=== PATIENT | female | born 1960 | race Two or more races ===

== ENCOUNTER 2016-08-29 22:35 | Emergency (ER) | payer SELFPAY ==
[2016-08-30] MEDS ORDERED: ONDANSETRON 4 MG TAB.RAPDIS PO ONE (00:53)
[2016-08-30] MEDS ORDERED: NORMAL SALINE 1000 ML 1,000 ML IV ONE ×2 (00:53→03:52)
--- NOTE | 2016-08-30 00:55 | ER Document Report ---
ED Medical Screen (RME) - General Stated Complaint: FEVER, VOMITING Time seen by provider: 00:50 Notes: 56 year old, 1 week of cough, fever, vomiting, body aches. States she couldn't eat anything today without vomiting. Productive cough. PMH HTN, denies any other PMH. - Related Data Allergies/Adverse Reactions: No Known Allergies Allergy (Verified 08/30/16 00:52) Past Medical History - Immunizations Hx Diphtheria, Pertussis, Tetanus Vaccination: Yes - tdap given tonight Physical Exam - Vital signs Vitals: Temp Pulse Resp BP Pulse Ox 98.6 F 82 16 116/73 97 08/30/16 00:00 08/30/16 00:00 08/30/16 00:00 08/30/16 00:00 08/30/16 00:00 - General General appearance: Other - patient appears tired but not in distress - Respiratory Breath sounds: Normal. No: Decreased air movement, Rhonchi Course - Vital Signs Vital signs: Temp Pulse Resp BP Pulse Ox 98.6 F 82 16 116/73 97 08/30/16 00:00 08/30/16 00:00 08/30/16 00:00 08/30/16 00:00 08/30/16 00:00
[2016-08-30 03:29] LABS: ABSOLUTE BASOPHILS # (AUTO) 0.1 10^3/uL (0.0-0.2); ABSOLUTE LYMPHOCYTES (AUTO) 2.5 10^3/uL (0.5-4.7); ABSOLUTE MONOCYTES (AUTO) 0.7 10^3/uL (0.1-1.4); BASOPHILS % (AUTO) 0.7 % (0-2); EOSINOPHILS % (AUTO) 0.5 % (0-6); HEMATOCRIT 39.7 % (36.0-47.0); HEMOGLOBIN 13.1 g/dL (12.0-15.5); HGB HCT DIFFERENCE -0.4; LYMPHOCYTES % (AUTO) 33.9 % (13-45); MEAN CORPUSCULAR HEMOGLOBIN 28.5 pg (27.0-33.4); MEAN CORPUSCULAR VOLUME 86 fl (80-97); MONOCYTES % (AUTO) 10.1 % (3-13); RED CELL DISTRIBUTION WIDTH 14.3 % (11.5-14.0); SEGMENTED NEUTROPHILS % (AUTO) 54.8 % (42-78); WHITE BLOOD COUNT 7.4 10^3/uL (4.0-10.5)
[2016-08-30 03:33] LABS: APPEARANCE,URINE SLIGHTLY-CLOUDY; BILIRUBIN,URINE NEGATIVE (NEGATIVE); GLUCOSE, URINE NEGATIVE (NEGATIVE); KETONES,URINE NEGATIVE (NEGATIVE); LEUKOCYTE ESTERASE,URINE LARGE (NEGATIVE); NITRITE,URINE POSITIVE (NEGATIVE); PROTEIN,URINE NEGATIVE (NEGATIVE); URINE SPECIFIC GRAVITY 1.015
[2016-08-30 03:44] LABS: ALANINE AMINOTRANSFERASE 37 U/L (9-52); ALBUMIN 4.2 g/dL (3.5-5.0); ALKALINE PHOSPHATASE 122 U/L (38-126); ANION GAP 13 (5-19); ASPARTATE AMINO TRANSFERASE 31 U/L (14-36); BILIRUBIN,TOTAL 0.7 mg/dL (0.2-1.3); BLOOD UREA NITROGEN 13 mg/dL (7-20); CALCIUM 9.4 mg/dL (8.4-10.2); CARBON DIOXIDE 27 mmol/L (22-30); CHLORIDE 102 mmol/L (98-107); GLUCOSE 117 mg/dL (75-110); POTASSIUM 4.4 mmol/L (3.6-5.0); SODIUM 141.8 mmol/L (137-145); TOTAL PROTEIN 7.1 g/dL (6.3-8.2)
[2016-08-30] MEDS ORDERED: CEFTRIAXONE 1 GM/D5W RTU 50 ML IV ONE (03:52)
[2016-08-30] MEDS ORDERED: KETOROLAC TROMETHAMINE INJ/PF 30 MG/1 ML SDV IV ONE (03:52)
--- NOTE | 2016-08-30 03:52 | ER Document Report ---
ED GI/ - General Mode of Arrival: Ambulatory Information source: Patient, Relative TRAVEL OUTSIDE OF THE [place] IN LAST 30 DAYS: No - HPI Patient complains to provider of: Flank pain - left Onset: Last week Location: Left flank Associated symptoms: Other - see above <AISHWARYA JARA - Last Filed: 08/30/16 04:01> <CLAUDIONADINE ANN - Last Filed: 08/30/16 05:19> - General Chief Complaint: Nausea/Vomiting Stated Complaint: FEVER, VOMITING Notes: 56 year old female presents to the ED complaining of vomiting, fever, and left flank pain that started last week. Patient is additionally complaining of a bloody nose and dysuria. Patient receives primary care at [facility] and is scheduled for an appointment in 4 days. (AISHWARYA JARA) - Related Data Allergies/Adverse Reactions: No Known Allergies Allergy (Verified 08/30/16 00:52) Past Medical History - General Information source: Patient - Social History Smoking Status: Former Smoker Chew tobacco use (# tins/day): No Frequency of alcohol use: None Drug Abuse: None Family History: Reviewed & Not Pertinent Patient has suicidal ideation: No Patient has homicidal ideation: No - Past Medical History Cardiac Medical History: Reports: Hx Hypertension - Immunizations Hx Diphtheria, Pertussis, Tetanus Vaccination: Yes - tdap given tonight <AISHWARYA JARA - Last Filed: 08/30/16 04:01> Review of Systems - Review of Systems Constitutional: See HPI, Fever EENT: See HPI, Nose discharge - bloody nose Cardiovascular: No symptoms reported Respiratory: No symptoms reported Gastrointestinal: See HPI, Vomiting Genitourinary: See HPI, Dysuria, Flank pain - left Female Genitourinary: No symptoms reported Musculoskeletal: No symptoms reported Skin: No symptoms reported Hematologic/Lymphatic: No symptoms reported Neurological/Psychological: No symptoms reported -: Yes All other systems reviewed and negative <AISHWARYA JARA - Last Filed: 08/30/16 04:01> Physical Exam - Vital signs Interpretation: Normal - General General appearance: Alert In distress: None - HEENT Head: Normocephalic, Atraumatic Eyes: Normal Extraocular movements intact: Yes Pupils: PERRL - Respiratory Respiratory status: No respiratory distress Breath sounds: Normal - Cardiovascular Rhythm: Regular Heart sounds: Normal auscultation - Abdominal Inspection: Normal - Back Back: CVA tenderness - left. No: Normal - Extremities General upper extremity: Normal inspection, Normal ROM General lower extremity: Normal inspection, Normal ROM - Neurological Neuro grossly intact: Yes Cognition: Normal Orientation: AAOx4 Rene Coma Scale Eye Opening: Spontaneous [place] Coma Scale Verbal: Oriented [place] Coma Scale Motor: Obeys Commands Rene Coma Scale Total: 15 Speech: Normal - Psychological Associated symptoms: Normal affect, Normal mood - Skin Skin Temperature: Warm Skin Moisture: Dry Skin Color: Normal <AISHWARYA JARA - Last Filed: 08/30/16 04:01> <NADINE SNYDER - Last Filed: 08/30/16 05:19> - Vital signs Vitals: Temp Pulse Resp BP Pulse Ox 98.6 F 82 16 116/73 97 08/30/16 00:00 08/30/16 00:00 08/30/16 00:00 08/30/16 00:00 08/30/16 00:00 (AISHWARYA JARA) (NADINE SNYDER) Course - Laboratory Result Diagrams: 08/30/16 03:00 08/30/16 03:00 <AISHWARYA JARA - Last Filed: 08/30/16 04:01> - Laboratory Result Diagrams: 08/30/16 03:00 08/30/16 03:00 <NADINE SNYDER - Last Filed: 08/30/16 05:19> - Vital Signs Vital signs: Temp Pulse Resp BP Pulse Ox 98.7 F 81 20 107/47 L 96 08/30/16 04:24 08/30/16 04:24 08/30/16 04:24 08/30/16 04:24 08/30/16 04:24 (AISHWARYA JARA) (NADINE SNYDER) - Laboratory Laboratory results interpreted by ma: 08/30/16 08/30/16 08/30/16 03:00 03:00 03:00 RDW 14.3 H Plt Count 130 L Glucose 117 H Urine Nitrite POSITIVE H Urine Urobilinogen 2.0 H Ur Leukocyte Esterase LARGE H Urine Ascorbic Acid 40 H (AISHWARYA JARA) (NADINE SNYDER) Discharge <AISHWARYA JARA - Last Filed: 08/30/16 04:01> <NADINE SNYDER - Last Filed: 08/30/16 05:19> - Discharge Clinical Impression: Pyelonephritis Condition: Stable Disposition: HOME, SELF-CARE Instructions: Pyelonephritis ([facility]) Prescriptions: Cefdinir 300 mg PO BID #20 capsule Ondansetron [Zofran Odt 4 mg Tablet] 1 - 2 tab PO Q4H PRN #15 tab.rapdis PRN Reason: For Nausea/Vomiting Oxycodone HCl/Acetaminophen [Percocet 5-325 mg Tablet] 1 - 2 tab PO Q4H PRN #15 tablet PRN Reason: Referrals: LAURA GAY MD [Primary Care Provider] - Follow up as needed Scribe Attestation: 08/30/16 05:19 I personally performed the services described in the documentation, reviewed and edited the documentation which was dictated to the scribe in my presence, and it accurately records my words and actions. (NADINE SNYDER)
[2016-08-30] MEDS ORDERED: ONDANSETRON ODT 4 MG TAB (6 TAB/DSPK) PO PRN (05:15)
[2016-08-30] MEDS ORDERED: HYDROCODONE/ACETAMINOPHEN 5-325 MG 6 TAB/DSPK PO PRN (05:15)
[2016-08-30 05:51] VITALS: BP 119/68
== END 2016-08-30 05:51 | disposition home or self-care (01) ==
LOC: ER 22:35
DX: N12 Tubulo-interstitial nephritis, not specified as acute or chronic (principal); R11.2 Nausea with vomiting, unspecified; R50.9 Fever, unspecified; R10.9 Unspecified abdominal pain; R04.0 Epistaxis; R30.0 Dysuria; Z87.891 Personal history of nicotine dependence
CPT/HCPCS: 36415; 87040; 87086; 85025; 87088; 80053; 81001; 87186; 87804; S0119; J1885; J7030; J0696

== ENCOUNTER → 2017-06-16 | Outpatient (CLI) | payer BC ==
--- NOTE | 2017-06-16 14:58 | RADIOLOGY REPORT (SQ) ---
EXAM DESCRIPTION: CHEST PA/LAT COMPLETED DATE/TIME: 06/16/2017 1:21 pm REASON FOR STUDY: ATYPICAL CHEST PAIN (R07.89) COMPARISON: None. EXAM PARAMETERS: NUMBER OF VIEWS: two views TECHNIQUE: Digital Frontal and Lateral radiographic views of the chest acquired. RADIATION DOSE: NA LIMITATIONS: none FINDINGS: LUNGS AND PLEURA: No opacities, masses or pneumothorax. No pleural effusion. MEDIASTINUM AND HILAR STRUCTURES: No masses or contour abnormalities. HEART AND VASCULAR STRUCTURES: Heart normal size. No evidence for failure. BONES: No acute findings. HARDWARE: None in the chest. OTHER: No other significant finding. IMPRESSION: NO SIGNIFICANT RADIOGRAPHIC FINDING IN THE CHEST. TECHNICAL DOCUMENTATION: JOB ID: [id number] [employer]- All Rights Reserved
== END ==
LOC: RAD 12:59
PROVIDERS: ATTEND Family Medicine
DX: R07.89 Other chest pain (principal)
CPT/HCPCS: 71020

== ENCOUNTER 2017-12-29 16:11 | Emergency (ER) | payer BC ==
[2017-12-29] MEDS ORDERED: ONDANSETRON HCL INJ/PF 4 MG/2 ML SDV IV ONE (17:06)
[2017-12-29] MEDS ORDERED: FENTANYL CITRATE INJ/PF 100 MCG/2 ML AMPUL IV ONE (17:06)
--- NOTE | 2017-12-29 17:08 | ER Document Report ---
ED Medical Screen (RME) - General Chief Complaint: Nausea/Vomiting Stated Complaint: VOMITING Time Seen by Provider: 12/29/17 17:02 Notes: RAPID MEDICAL EVALUATION DISCLOSURE I have seen this patient as part of a Rapid Medical Evaluation and, if applicable, placed any initially appropriate orders. The patient will be seen and fully evaluated, including a full history and physical exam, by a provider ( in Main ED or Fast Track) when a room becomes available. 57-year-old female here with complaints of nausea vomiting abdominal pain ongoing since last night. The symptoms started after she ate some fish that the caught. The abdominal pain is described as "all over". She had some fevers yesterday but not today. She has no diarrhea. EXAM CTAB RRR Minimally tender abdomen No peritoneal signs TRAVEL OUTSIDE OF THE [place] IN LAST 30 DAYS: No - Related Data Allergies/Adverse Reactions: No Known Allergies Allergy (Verified 08/30/16 00:52) Past Medical History - Social History Chew tobacco use (# tins/day): No Frequency of alcohol use: None Drug Abuse: None - Past Medical History Cardiac Medical History: Reports: Hx Hypertension Renal/ Medical History: Denies: Hx Peritoneal Dialysis - Immunizations Hx Diphtheria, Pertussis, Tetanus Vaccination: Yes - tdap given tonight Physical Exam - Vital signs Vitals: Temp Pulse Resp Pulse Ox 97.6 F 90 18 100 12/29/17 16:22 12/29/17 16:22 12/29/17 16:22 12/29/17 16:22 Course - Vital Signs Vital signs: Temp Pulse Resp BP Pulse Ox 97.6 F 90 18 100 12/29/17 16:22 12/29/17 16:22 12/29/17 16:22 12/29/17 16:22
[2017-12-29 18:08] LABS: HEMATOCRIT 49.7 % (36.0-47.0); HEMOGLOBIN 15.9 g/dL (12.0-15.5); MEAN CORPUSCULAR VOLUME 81 fl (80-97); PLATELET COUNT 212 10^3/uL (150-450); RED BLOOD COUNT 6.11 10^6/uL (3.72-5.28); RED CELL DISTRIBUTION WIDTH 17.4 % (11.5-14.0); WHITE BLOOD COUNT 20.1 10^3/uL (4.0-10.5)
--- NOTE | 2017-12-29 18:18 | RADIOLOGY REPORT (SQ) ---
EXAM DESCRIPTION: ACUTE ABDOMEN SERIES COMPLETED DATE/TIME: 12/29/2017 6:05 pm REASON FOR STUDY: n/v abd pain COMPARISON: None. NUMBER OF VIEWS: Three views. TECHNIQUE: Frontal chest, supine abdomen and upright abdomen radiographic images acquired. LIMITATIONS: None. FINDINGS: CHEST: No acute infiltrates. No pleural effusion. No pneumothorax. No cardiomegaly. FREE AIR: None. No abnormal gas collections. BOWEL GAS PATTERN: Nonobstructive pattern. No dilated loops or air fluid levels. CALCIFICATIONS: No suspicious calcifications. HARDWARE: None in the abdomen. SOFT TISSUES: Splenomegaly, at least 15 cm in length BONES: No acute fracture. No worrisome bone lesions. OTHER: No other significant finding. IMPRESSION: Splenomegaly Nonobstructive bowel gas pattern No acute infiltrates TECHNICAL DOCUMENTATION: JOB ID: [id number] [employer]- All Rights Reserved Reading location - IP/workstation name: [email or web address]
[2017-12-29 18:22] LABS: ALANINE AMINOTRANSFERASE 28 U/L (9-52); ALBUMIN 4.4 g/dL (3.5-5.0); ALKALINE PHOSPHATASE 103 U/L (38-126); ANION GAP 15 (5-19); ASPARTATE AMINO TRANSFERASE 28 U/L (14-36); BILIRUBIN,DIRECT 0.4 mg/dL (0.0-0.4); BILIRUBIN,TOTAL 0.6 mg/dL (0.2-1.3); BLOOD UREA NITROGEN 24 mg/dL (7-20); CARBON DIOXIDE 27 mmol/L (22-30); CHLORIDE 103 mmol/L (98-107); GLUCOSE 159 mg/dL (75-110); LIPASE 143.1 U/L (23-300); POTASSIUM 4.7 mmol/L (3.6-5.0); SODIUM 144.5 mmol/L (137-145); TOTAL PROTEIN 7.9 g/dL (6.3-8.2)
[2017-12-29 18:26] LABS: ABSOLUTE LYMPHOCYTES# (MANUAL) 7.4 10^3/uL (0.5-4.7); ABSOLUTE NEUTROPHILS# (MANUAL) 11.7 10^3/uL (1.7-8.2); BASOPHILS % (MANUAL) 0 % (0-2); EOSINOPHILS % (MANUAL) 0 % (0-6); LYMPHOCYTES % (MANUAL) 32 % (13-45); MONOCYTES % (MANUAL) 5 % (3-13); PLATELET COMMENT ADEQUATE; SEGMENTED NEUTROPHILS % (MAN) 58 % (42-78); TOTAL CELLS COUNTED 100
[2017-12-29 18:27] LABS: ANISOCYTOSIS SLIGHT; OVALOCYTES SLIGHT; POIKILOCYTOSIS SLIGHT
[2017-12-29 18:29] LABS: NUCLEATED RED BLOOD CELLS 0 /100 WBC (0)
[2017-12-29] MEDS ORDERED: NORMAL SALINE 1000 ML 1,000 ML IV ONE (21:10)
[2017-12-29] MEDS ORDERED: MORPHINE SULFATE 10 MG/ML INJ IV ONE (21:10)
--- NOTE | 2017-12-29 21:23 | ER Document Report ---
ED GI/ - General Chief Complaint: Nausea/Vomiting Stated Complaint: VOMITING Time Seen by Provider: 12/29/17 17:02 Mode of Arrival: Ambulatory Information source: Patient Notes: 57-year-old female presents with complaint of abdominal pain and vomiting since last night. Patient's daughter at bedside states that she has been vomiting nonstop all day. Patient states that she has vomited at least 15 times. Patient denies any diarrhea, fever, dysuria or any other symptoms. Patient with history of cholecystectomy. TRAVEL OUTSIDE OF THE [place] IN LAST 30 DAYS: No - Related Data Allergies/Adverse Reactions: No Known Allergies Allergy (Verified 08/30/16 00:52) Past Medical History - General Information source: Patient, Relative - Social History Smoking Status: Never Smoker Chew tobacco use (# tins/day): No Frequency of alcohol use: None Drug Abuse: None Family History: Reviewed & Not Pertinent Patient has suicidal ideation: No Patient has homicidal ideation: No - Past Medical History Cardiac Medical History: Reports: Hx Hypertension Renal/ Medical History: Denies: Hx Peritoneal Dialysis Past Surgical History: Reports: Hx Cholecystectomy - Immunizations Hx Diphtheria, Pertussis, Tetanus Vaccination: Yes - tdap given tonight Review of Systems - Review of Systems Constitutional: Diaphoresis EENT: No symptoms reported Cardiovascular: No symptoms reported Respiratory: No symptoms reported Gastrointestinal: Abdominal pain, Nausea, Vomiting Genitourinary: No symptoms reported Female Genitourinary: No symptoms reported Musculoskeletal: No symptoms reported Skin: No symptoms reported Hematologic/Lymphatic: No symptoms reported Neurological/Psychological: No symptoms reported Physical Exam - Vital signs Vitals: Temp Pulse Resp Pulse Ox 97.6 F 90 18 100 12/29/17 16:22 12/29/17 16:22 12/29/17 16:22 12/29/17 16:22 - Notes Notes: PHYSICAL EXAMINATION: GENERAL: Well-nourished female writhing around in moderate distress. HEAD: Atraumatic, normocephalic. EYES: Pupils equal round and reactive to light, extraocular movements intact, conjunctiva are normal. ENT: Nares patent, oropharynx clear without exudates. Moist mucous membranes. NECK: Normal range of motion, supple without lymphadenopathy LUNGS: Breath sounds clear to auscultation bilaterally and equal. No wheezes rales or rhonchi. HEART: Regular rate and rhythm without murmurs ABDOMEN: Significant tenderness to RLQ/RUQ/periumbilical/epigastric area of abdomen. + guarding, no rebound. No masses appreciated. Large scar noted from previous cholecystectomy. Female : No suprapubic pain with palpation. Musculoskeletal: Normal range of motion, no pitting or edema. No cyanosis. NEUROLOGICAL: Cranial nerves grossly intact. Normal speech. Normal sensory, motor exams PSYCH: Normal mood, normal affect. SKIN: Warm, Dry, normal turgor, no rashes or lesions noted. Course - Re-evaluation Re-evalutation: 57-year-old Algerian-speaking female presenting with vomiting since 12 noon as well as abdominal pain. Patient is afebrile. Patient is very tender with palpation on exam to periumbilical and right lower quadrant. Patient has not vomited since she was medicated with Zofran. Initial CBC shows elevated white blood count at 20,000. Chemistries unremarkable. Triage provider ordered an acute abdominal series which does not show any acute findings. Patient will be given 2 L fluid bolus as well as pain and nausea medication. Given patient's exquisite abdominal tenderness, will order CT abdomen and pelvis with IV and oral contrast. Patients CT abdomen pelvis shows wall thickening involving loops of the distal ileum possibly infectious. Patient still has not vomited since her initial dose of Zofran. Patient does report that pain is improved. Patient is willing to try a p.o. challenge and try to take p.o. antibiotics. Patient tolerated p.o. fluids as well as p.o. antibiotics and has not vomited 1 hour after administration. Discussed at length return precautions to include increasing pain or development of fever. Patient and spouse at bedside both verbalized understanding of discharge procedures as well as return precautions. Patient does report that she does feel well enough to go home. - Vital Signs Vital signs: Temp Pulse Resp BP Pulse Ox 98.5 F 90 23 H 129/63 H 95 12/30/17 04:33 12/29/17 16:22 12/30/17 04:01 12/30/17 04:01 12/30/17 04:01 - Laboratory Result Diagrams: 12/29/17 17:35 12/29/17 17:35 Laboratory results interpreted by me: 12/29/17 12/29/17 17:35 17:35 WBC 20.1 H RBC 6.11 H Hgb 15.9 H Hct 49.7 H MCH 26.0 L RDW 17.4 H Abs Neuts (Manual) 11.7 H Abs Lymphs (Manual) 7.4 H BUN 24 H Glucose 159 H Discharge - Discharge Clinical Impression: Bowel wall thickening Abdominal pain Qualifiers: Abdominal location: right lower quadrant Qualified Code(s): R10.31 - Right lower quadrant pain Vomiting Qualifiers: Vomiting type: unspecified Vomiting Intractability: unspecified Nausea presence : with nausea Qualified Code(s): R11.2 - Nausea with vomiting, unspecified Condition: Stable Disposition: HOME, SELF-CARE Additional Instructions: [place] nicamente lquidos transparentes ivan los prximos dos augustin, luego avance la dieta segn lo tolere. [place] los medicamentos segn lo recetado. [place] Tylenol para el dolor. Jase un seguimiento con [facility] esta semana para un seguimiento. Adjunto eliseo copia de naresh estudios de radiologa. Regrese al servicio de urgencias si ackerman dolor empeora o si tiene fiebre. Prescriptions: Ciprofloxacin HCl [Cipro 500 mg Tablet] 500 mg PO BID #20 tablet Metronidazole [Flagyl 500 mg Tablet] 500 mg PO TID #21 tablet Ondansetron [Zofran Odt 4 mg Tablet] 1 - 2 tab PO Q4H PRN #15 tab.rapdis PRN Reason: For Nausea/Vomiting
--- NOTE | 2017-12-30 00:45 | RADIOLOGY REPORT (SQ) ---
EXAM DESCRIPTION: CT ABDOMEN AND PELVIS WITH CONTRAST CLINICAL HISTORY: right abd pain/vomiting COMPARISON: None Available. TECHNIQUE: CT of the abdomen and pelvis performed following IV administration of 81 mL of Isovue-370. Delayed imaging obtained. DLP: 1296.26 mGycm FINDINGS: Lung Bases: The visualized lung bases are clear. Bones: No destructive bone lesions identified. Minimal degenerative spondylosis of the visualized spine. Abdomen: Liver: The liver has normal size and density. No intrahepatic mass or biliary dilatation. Gallbladder: Prior cholecystectomy. Spleen, Pancreas, and Adrenal Glands: Splenomegaly. The adrenal glands and pancreas are unremarkable. Kidneys: The kidneys have normal size and contour without evidence of solid mass or hydronephrosis. Vasculature: Aortoiliac atherosclerosis. IVC is unremarkable. The portal vein is patent. The proximal visceral and renal arteries are patent. Stomach: The stomach and duodenum have normal course. Other: No free intraperitoneal air. Small amount of ascites. Pelvis: Bladder: Urinary bladder is unremarkable. Bowel: Extensive wall thickening involving a loop of distal ileum. Wall thickening measures 1.0 cm. Catheter diverticula of the colon. No dilated loops of large or small bowel. Appendix: Normal appendix. Pelvis: Uterus is not enlarged. IMPRESSION: 1. Wall thickening involving loops of distal ileum. This is nonspecific and may be related to enteritis of infectious or inflammatory etiology. Neoplastic or ischemic etiologies not excluded. 2. Small amount of ascites. 3. Diverticulosis without evidence of acute diverticulitis. 4. Splenomegaly. This exam was performed according to our departmental dose-optimization program, which includes automated exposure control, adjustment of the mA and/or kV according to patient size and/or use of iterative reconstruction technique.
[2017-12-30] MEDS ORDERED: METRONIDAZOLE 500 MG TABLET PO ONE (02:00)
[2017-12-30] MEDS ORDERED: MORPHINE SULFATE IR 15 MG TABLET PO ONE (02:00)
[2017-12-30] MEDS ORDERED: CIPROFLOXACIN HCL 500 MG TABLET PO ONE (02:00)
[2017-12-30] MEDS ORDERED: ONDANSETRON 4 MG TAB.RAPDIS PO ONE (03:51)
[2017-12-30 05:04] VITALS: BP 114/62
== END 2017-12-30 04:45 | disposition home or self-care (01) ==
LOC: ER 16:11
DX: R11.2 Nausea with vomiting, unspecified (principal); R10.31 Right lower quadrant pain; R19.8 Other specified symptoms and signs involving the digestive system and abdomen; R61 Generalized hyperhidrosis; R10.813 Right lower quadrant abdominal tenderness; R10.815 Periumbilic abdominal tenderness; R10.811 Right upper quadrant abdominal tenderness; R10.816 Epigastric abdominal tenderness; D72.829 Elevated white blood cell count, unspecified; I10 Essential (primary) hypertension; Z90.49 Acquired absence of other specified parts of digestive tract
CPT/HCPCS: 99284; 96361; 96374; 96375; 36415; 83690; 85025; 80053; 74022; 74177; S0119; J3010; J2270; J2405; J7030

== ENCOUNTER 2018-06-09 12:13 | Day surgery (SDC) | payer BC ==
[~2018-06-09 12:13] MED LIST: EPINEPHRINE INJ 1 MG/10 ML DISP.SYRIN ONE; FLUMAZENIL INJ 0.5 MG/5 ML VIAL ONE; GLUCAGON,HUMAN RECOMB 1 MG INJ ONE; NALOXONE HCL INJ/PF 0.4 MG/1 ML SDV ONE; ONDANSETRON HCL INJ/PF 4 MG/2 ML SDV ONE
[2018-06-09] MEDS: MIDAZOLAM 2 MG/2 ML INJ ONE ×2 (12:56→13:00)
[2018-06-09] MEDS: FENTANYL CITRATE INJ/PF 100 MCG/2 ML AMPUL ONE ×3 (12:58→13:04)
--- NOTE | 2018-06-09 13:18 | Operative Report ---
Operative Report DATE OF SURGERY: 06/09/18 Operative Report: The risks benefits and alternatives of the procedure explained to the patient in detail and informed consent is obtained.A GIF Olympus video scope was inserted into the patient's mouth and hypopharynx the esophagus is identified intubated and insufflated, the scope was then advanced through the esophagus stomach and duodenum ,retroflexion maneuver is done, the esophagus stomach and first and second portions of the duodenum examined PREOPERATIVE DIAGNOSIS: Hematemesis POSTOPERATIVE DIAGNOSIS: Gastric ulcer/erosion. Gastritis. No active bleeding seen. Biopsy obtained to rule out for Helicobacter pylori OPERATION: EGD with biopsy SURGEON: YEN JACKSON ANESTHESIA: Moderate Sedation - 4 mg of Versed, 75 mcg of fentanyl. Conscious sedation monitoring time 30 minutes. TISSUE REMOVED OR ALTERED: As noted above. COMPLICATIONS: None. ESTIMATED BLOOD LOSS: None. INTRAOPERATIVE FINDINGS: As noted above. PROCEDURE: Patient tolerated the procedure well. No immediate postprocedure complications are noted. Patient discharged in good condition. Discharge date 06/09/2018. Discharge diet: Regular. Discharge activity: Regular. 2-3-week follow-up to discuss findings. Patient is instructed call the office or proceed to the emergency room should there be any further problems or questions. Wait on the biopsy.
[2018-06-09 14:33] VITALS: BP 106/70
== END 2018-06-09 14:10 | disposition home or self-care (01) ==
LOC: END 12:13
PROVIDERS: ATTEND Internal Medicine Gastroenterology
DX: K29.50 Unspecified chronic gastritis without bleeding (principal); K25.9 Gastric ulcer, unspecified as acute or chronic, without hemorrhage or perforation; K92.0 Hematemesis; Z79.899 Other long term (current) drug therapy; Z79.82 Long term (current) use of aspirin; Z79.51 Long term (current) use of inhaled steroids
CPT/HCPCS: 43239; 88305 ×2; J2250; J3010; J2405; J0171; J1610; J2310; J3490

== ENCOUNTER → 2018-07-27 | Outpatient (CLI) | payer BC ==
[2018-07-27 11:18] LABS: HEMATOCRIT 37.5 % (36.0-47.0); HEMOGLOBIN 12.3 g/dL (12.0-15.5); MEAN CORPUSCULAR HEMOGLOBIN 26.3 pg (27.0-33.4); MEAN CORPUSCULAR HGB CONC 32.7 g/dL (32.0-36.0); MEAN CORPUSCULAR VOLUME 80 fl (80-97); PLATELET COUNT 145 10^3/uL (150-450); RED BLOOD COUNT 4.66 10^6/uL (3.72-5.28); RED CELL DISTRIBUTION WIDTH 17.9 % (11.5-14.0); WHITE BLOOD COUNT 4.9 10^3/uL (4.0-10.5)
[2018-07-27 11:27] LABS: ALANINE AMINOTRANSFERASE 20 U/L (9-52); ALBUMIN 4.4 g/dL (3.5-5.0); ALKALINE PHOSPHATASE 107 U/L (38-126); ANION GAP 13 (5-19); ASPARTATE AMINO TRANSFERASE 27 U/L (14-36); BILIRUBIN,DIRECT 0.2 mg/dL (0.0-0.4); BILIRUBIN,TOTAL 0.6 mg/dL (0.2-1.3); BLOOD UREA NITROGEN 20 mg/dL (7-20); CALCIUM 9.9 mg/dL (8.4-10.2); CARBON DIOXIDE 28 mmol/L (22-30); CHLORIDE 102 mmol/L (98-107); CHOLESTEROL 165.38 mg/dL (0-200); GLUCOSE 96 mg/dL (75-110); POTASSIUM 4.9 mmol/L (3.6-5.0); SODIUM 143.1 mmol/L (137-145); TOTAL PROTEIN 7.4 g/dL (6.3-8.2); TRIGLYCERIDES 72 mg/dL (<150)
--- NOTE | 2018-07-27 11:29 | RADIOLOGY REPORT (SQ) ---
EXAM DESCRIPTION: CHEST PA/LATERAL COMPLETED DATE/TIME: 07/27/2018 10:25 am REASON FOR STUDY: DEMENTIA;SOB COMPARISON: Chest films 12/29/2017, 06/16/2017 EXAM PARAMETERS: NUMBER OF VIEWS: two views TECHNIQUE: Digital Frontal and Lateral radiographic views of the chest acquired. RADIATION DOSE: NA LIMITATIONS: none FINDINGS: LUNGS AND PLEURA: No opacities, masses or pneumothorax. No pleural effusion. MEDIASTINUM AND HILAR STRUCTURES: No masses or contour abnormalities. HEART AND VASCULAR STRUCTURES: Heart normal size. No evidence for failure. BONES: No acute findings. HARDWARE: None in the chest. OTHER: No other significant finding. IMPRESSION: NO SIGNIFICANT RADIOGRAPHIC FINDING IN THE CHEST. TECHNICAL DOCUMENTATION: JOB ID: [id number] [employer]- All Rights Reserved Reading location - IP/workstation name: [email or web address]
[2018-07-27 11:38] LABS: DIRECT LDL 98 mg/dL (<100)
[2018-07-27 12:41] LABS: ABSOLUTE LYMPHOCYTES# (MANUAL) 2.9 10^3/uL (0.5-4.7); ABSOLUTE MONOCYTES # (MANUAL) 0.5 10^3/uL (0.1-1.4); ABSOLUTE NEUTROPHILS# (MANUAL) 1.4 10^3/uL (1.7-8.2); BASOPHILS % (MANUAL) 0 % (0-2); EOSINOPHILS % (MANUAL) 1 % (0-6); LYMPHOCYTES % (MANUAL) 59 % (13-45); MONOCYTES % (MANUAL) 11 % (3-13); SEGMENTED NEUTROPHILS % (MAN) 29 % (42-78); TOTAL CELLS COUNTED 100
[2018-07-27 12:43] LABS: ANISOCYTOSIS 1+; HYPOCHROMASIA SLIGHT; OVALOCYTES 1+; PLATELET COMMENT DECREASED; POIKILOCYTOSIS 1+
== END ==
LOC: OD 09:40
PROVIDERS: ATTEND Internal Medicine
DX: D64.9 Anemia, unspecified (principal); R10.9 Unspecified abdominal pain; E03.9 Hypothyroidism, unspecified; E55.9 Vitamin D deficiency, unspecified
CPT/HCPCS: 36415; 71046; 80053; 80061; 82140; 82306; 82607; 82746; 84443; 85025

== ENCOUNTER → 2018-07-29 | Outpatient (CLI) | payer BC ==
--- NOTE | 2018-07-29 09:19 | RADIOLOGY REPORT (SQ) ---
EXAM DESCRIPTION: CT HEAD WITHOUT COMPLETED DATE/TIME: 07/29/2018 9:03 am REASON FOR STUDY: UNSPECIFIED DEMENTIA WITHOUT BEHAVORIAL DISTRUBANCE F03.90 UNSPECIFIED DEMENTIA W ITHOUT BEHAVIORAL DISTURBANCE R55 SYNCOPE AND COLLAPSE COMPARISON: None. TECHNIQUE: Axial images acquired through the brain without intravenous contrast. Images reviewed wi th bone, brain and subdural windows. Additional sagittal and coronal reconstructions were generated. Images stored on PACS. All CT scanners at this facility use dose modulation, iterative reconstruction, and/or weight based d osing when appropriate to reduce radiation dose to as low as reasonably achievable (ALARA). [facility]: Dose Right [facility]: CareDose [facility]: Dose Right [facility]: Teradose 4D [facility]: Smart [employer] RADIATION DOSE: CT Rad equipment meets quality standard of care and radiation dose reduction techniq ues were employed. CTDIvol: 47.9 - 48.6 mGy. DLP: 1486 mGy-cm. mGy. LIMITATIONS: None. FINDINGS: VENTRICLES: Normal size and contour. CEREBRUM: There is a small focal area of relative increased density at the level of the sylvian fissu re on the left which could conceivably represent a small mass. This could also represent a faint brenda cification. If further workup is deemed clinically warranted, MRI may be of value for further evalua tion. No hemorrhage. No midline shift. No evidence for acute infarction. Normal irizarry/white matter differentiation. No areas of low density in the white matter. There is a focal calcific density in t he right frontal lobe without associated mass. CEREBELLUM: There is a faint radiopaque density at the level of the sylvian fissure on the left. No hemorrhage. No alteration of density. No evidence for acute infarction. EXTRAAXIAL SPACES: No fluid collections. No masses. ORBITS AND GLOBE: No intra- or extraconal masses. Normal contour of globe without masses. CALVARIUM: No fracture. PARANASAL SINUSES: No fluid or mucosal thickening. SOFT TISSUES: No mass or hematoma. OTHER: No other significant finding. IMPRESSION: Small focal area of relative increased density at the level of the sylvian fissure on th e left as noted above this could conceivably represent a small mass but could also represent a faint calcification. Clinical correlation is recommended. If further workup is deemed clinically warrante d I would recommend MRI. Calcific density is identified at the level of the right frontal lobe witho ut associated mass. Other findings as noted above EVIDENCE OF ACUTE STROKE: NO. COMMENT: Quality ID # [id number]: Final reports with documentation of one or more dose reduction techniques (e.g., Automated exposure control, adjustment of the mA and/or kV according to patient size, use of iterative reconstruction technique) TECHNICAL DOCUMENTATION: JOB ID: [id number] [employer]- All Rights Reserved Reading location - IP/workstation name: [email or web address]
--- NOTE | 2018-07-29 12:19 | RADIOLOGY REPORT (SQ) ---
EXAM DESCRIPTION: CAROTID DOPPLER COMPLETED DATE/TIME: 07/29/2018 12:02 pm REASON FOR STUDY: SYNCOPE F03.90 UNSPECIFIED DEMENTIA WITHOUT BEHAVIORAL DISTURBANCE R55 SYNCOPE A ND COLLAPSE COMPARISON: CT brain 07/29/2018 TECHNIQUE: Grayscale ultrasound, Doppler velocity and spectra, and color Doppler images acquired of the extra-cranial carotid and vertebral arteries. Images stored on PACS. LIMITATIONS: None. FINDINGS: RIGHT CAROTID CCA Velocities: Within normal limits. Right common carotid artery peak systolic velocity 0.9 m/sec ICA Velocities Peak systolic 1.2 m/s. End diastolic 0.4 m/s. Proximal ICA/CCA peak systolic ratio 1.3. Velocities suggest about 50% diameter narrowing of the proximal right ICA. This correlates with irizarry scale and color flow imaging LEFT CAROTID CCA Velocities: Within normal limits. Left common carotid artery peak systolic velocity 0.89 m/sec ICA Velocities Peak systolic 1.1 m/s. End diastolic 0.4 m/s. Proximal ICA/CCA peak systolic ratio 1.3. Velocities suggest about 50% diameter narrowing of the left proximal ICA. This correlates with zafar moy and color flow images VERTEBRAL ARTERIES: Antegrade flow. Normal waveforms. SUBCLAVIAN ARTERIES: Not examined. OTHER: No other significant finding. IMPRESSION: About 50% diameter narrowing proximal right and proximal left ICA at the carotid bifurca tions. Antegrade pulsatile vertebral artery flow bilaterally COMMENT: Quality ID #[id number]: Velocity criteria are extrapolated from the diameter data as defined by t [place] Society of Radiologists in Ultrasound Consensus Conference. Radiology 2003: 229; 340-346. TECHNICAL DOCUMENTATION: JOB ID: [id number] [employer]- All Rights Reserved Reading location - IP/workstation name: [facility]
--- NOTE | 2018-07-31 19:33 | XCELERA REPORT ---
[address] [address] Transthoracic Echocardiogram Report Name: HAZEL BORGES Age: 58 yrs Gender: Female : 1960 Patient Status: Outpatient Patient Location: [facility] Study Date: 07/29/2018 10:01 AM Procedure: A two-dimensional transthoracic echocardiogram with color flow and Doppler was performed. The study was technically limited with all images being suboptimal in quality. Reason For Study: SYNCOPE History: SYNCOPE. Ordering Physician: JEANIE TILLMAN Performed By: Shannen Montgomery Interpretation Summary The left ventricle is normal in size. There is normal left ventricular wall thickness. LV EF is 65% Left ventricular systolic function is normal. Doppler measurements suggest impaired left ventricular relaxation, which is associated with grade I/IV or mild diastolic dysfunction The left ventricular wall motion is normal. There is no thrombus. There is no ventricular septal defect visualized. The right ventricle is grossly normal size. The right ventricle is not well visualized secondary to technical limitations The right atrium is normal. The left atrial size is normal. The interatrial septum is intact with no evidence for an atrial septal defect. There is no evidence of mitral valve prolapse. There is no mitral valve stenosis. There is no mitral regurgitation noted. There is no aortic valve stenosis There is no LVOT obstruction. No aortic regurgitation is present. There is no tricuspid stenosis. No tricuspid regurgitation. Unable to calculate RVSP due lack of TR jet. There is no pulmonic valvular stenosis. There is no pulmonic valvular regurgitation. The aortic root is normal size. There is no pericardial effusion. MMode/2D Measurements & Calculations RVDd: 2.4 cm LVIDd: 4.5 cm FS: 34.7 % Ao root diam: 2.9 cm IVSd: 0.74 cm LVIDs: 2.9 cm EDV(Teich): 91.5 ml Ao root area: 6.4 cm2 LVPWd: 0.94 cm ESV(Teich): 32.9 ml EF(Teich): 64.0 % Doppler Measurements & Calculations MV E max perez: MV dec slope: Ao V2 max: LV V1 max P.7 cm/sec 132.4 cm/sec 4.1 mmHg MV A max perez: 308.7 cm/sec2 Ao max PG: LV V1 max: 85.9 cm/sec MV dec time: 0.16 sec 7.0 mmHg 101.5 cm/sec MV E/A: 0.59 PA V2 max: 90.0 cm/sec PA max P.2 mmHg Left Ventricle The left ventricle is normal in size. There is normal left ventricular wall thickness. LV EF is 65%. Left ventricular systolic function is normal. Doppler measurements suggest impaired left ventricular relaxation, which is associated with grade I/IV or mild diastolic dysfunction. The left ventricular wall motion is normal. There is no thrombus. There is no ventricular septal defect visualized. Right Ventricle The right ventricle is not well visualized secondary to technical limitations. The right ventricle is grossly normal size. Atria The right atrium is normal. The left atrial size is normal. The interatrial septum is intact with no evidence for an atrial septal defect. Mitral Valve There is no evidence of mitral valve prolapse. There is no vegetation seen on the mitral valve. There is no mitral valve stenosis. There is no mitral regurgitation noted. Aortic Valve There is no aortic valvular vegetation. There is no aortic valve stenosis. There is no LVOT obstruction. No aortic regurgitation is present. Tricuspid Valve There is no tricuspid stenosis. No tricuspid regurgitation. Unable to calculate RVSP due lack of TR jet. Pulmonic Valve There is no pulmonic valvular stenosis. There is no pulmonic valvular regurgitation. Great Vessels The aortic root is normal size. Effusions There is no pericardial effusion. : JEANIE TILLMAN > Pamela Pineda
== END ==
LOC: RAD 08:29
PROVIDERS: ATTEND Internal Medicine
DX: F03.90 Unspecified dementia, unspecified severity, without behavioral disturbance, psychotic disturbance, mood disturbance, and anxiety (principal)
CPT/HCPCS: 70450; 93306; 93880

== ENCOUNTER → 2018-09-19 | Outpatient (CLI) | payer BC ==
--- NOTE | 2018-09-19 14:33 | RADIOLOGY REPORT (SQ) ---
EXAM DESCRIPTION: MRI ABDOMEN WITHOUT COMPLETED DATE/TIME: 09/19/2018 10:48 am REASON FOR STUDY: RIGHT UPPER QUADRANT PAIN, OTHER SPECIFIED DISEASES OF BILARY TRACT K83.8 OTHER S PECIFIED DISEASES OF BILIARY TRACT COMPARISON: None. TECHNIQUE: Noncontrast MRCP. Source and MIP images reviewed. LIMITATIONS: None. FINDINGS: GALLBLADDER: Surgically absent INTRAHEPATIC DUCTS: Nondilated. EXTRAHEPATIC DUCTS: Normal caliber common duct. There is an additional tubular structure entering th e common duct distally smooth blind in proximally. Probably residual cystic duct. PANCREAS: Generally homogeneous, no gross mass or significant signal alteration. No surrounding infl ammatory changes or fluid. Pancreatic duct is normal. LIVER, SPLEEN, KIDNEYS, ADRENALS: Massive splenomegaly. 22 cm. VESSELS: No evidence of aneurysm. Grossly appropriate flow voids in the major vascular structures. LUNG BASES: Grossly clear. OTHER: No other significant finding. IMPRESSION: Presumably long cystic duct remnant. Common duct is normal size without obstruction. Massive splenomegaly. TECHNICAL DOCUMENTATION: JOB ID: [id number] [employer]- All Rights Reserved Reading location - IP/workstation name: [email or web address]
== END ==
LOC: RAD 09:21
PROVIDERS: ATTEND Internal Medicine Gastroenterology
DX: K83.8 Other specified diseases of biliary tract (principal); R10.11 Right upper quadrant pain; Z90.49 Acquired absence of other specified parts of digestive tract
CPT/HCPCS: 74181

== ENCOUNTER 2018-09-21 09:16 | Day surgery (SDC) | payer BC ==
[~2018-09-21 09:16] MED LIST changes: -EPINEPHRINE INJ 1 MG/10 ML DISP.SYRIN ONE; -FLUMAZENIL INJ 0.5 MG/5 ML VIAL ONE; -GLUCAGON,HUMAN RECOMB 1 MG INJ ONE; -NALOXONE HCL INJ/PF 0.4 MG/1 ML SDV ONE; -ONDANSETRON HCL INJ/PF 4 MG/2 ML SDV ONE; +PROPOFOL INJ 200 MG/20 ML VIAL IV ONE
[2018-09-21] MEDS ORDERED: PROPOFOL INJ 200 MG/20 ML VIAL IV ONE (10:25)
[2018-09-21 11:02] VITALS: BP 116/58
--- NOTE | 2018-09-21 13:01 | Operative Report ---
Operative Report DATE OF SURGERY: 09/21/18 Operative Report: The risks, benefits and alternatives of the procedure including the risks of bleeding, perforation requiring surgery have been explained to the patient in detail and informed consent has been obtained. The patient is placed in a left, lateral decubital position. Timeout was called. Propofol medication is administered. Rectal examination is done which did not reveal any masses, tears or fissures. An Olympus videoscope was introduced into the patient's rectum. The scope was then carefully advanced all the way to the cecum. The cecum was identified by the usual anatomical landmarks including the ileocecal valve as well as the appendiceal office. Photodocumentation was obtained. The scope was then sequentially pulled back via the rest segments of the colon including the ascending colon, hepatic flexure, transverse colon, splenic flexure, descending colon and finally into the rectosigmoid portions of the colon. Retroflexion maneuver was performed. PREOPERATIVE DIAGNOSIS: Change in bowel habits POSTOPERATIVE DIAGNOSIS: Mild inflammation noted on the right side of the colon. Internal hemorrhoids. Diverticulosis without any evidence of diverticulitis OPERATION: Colonoscopy with biopsy SURGEON: YEN JACKSON ANESTHESIA: LMAC TISSUE REMOVED OR ALTERED: As noted above. COMPLICATIONS: None. ESTIMATED BLOOD LOSS: None. INTRAOPERATIVE FINDINGS: As noted above. PROCEDURE: Patient tolerated the procedure well. No immediate postprocedure complications are noted. Patient discharged in good condition. Discharge date 09/21/2018. Discharge diet: Regular. Discharge activity: Regular. 2-3-week follow-up to discuss findings. Patient is instructed call the office or proceed to the emergency room should there be any further problems or questions. I will wait on the pathology.
== END 2018-09-21 11:20 | disposition home or self-care (01) ==
LOC: END 09:16
PROVIDERS: ATTEND Internal Medicine Gastroenterology
DX: K52.9 Noninfective gastroenteritis and colitis, unspecified (principal); K64.8 Other hemorrhoids; K57.30 Diverticulosis of large intestine without perforation or abscess without bleeding; I10 Essential (primary) hypertension; E03.9 Hypothyroidism, unspecified; I65.22 Occlusion and stenosis of left carotid artery; Z55.0 Illiteracy and low-level literacy; Z79.899 Other long term (current) drug therapy; Z79.51 Long term (current) use of inhaled steroids
CPT/HCPCS: 45380; 88305 ×2; J2704; 811

== ENCOUNTER → 2018-09-28 | Outpatient (CLI) | payer BC ==
--- NOTE | 2018-09-28 14:53 | RADIOLOGY REPORT (SQ) ---
EXAM DESCRIPTION: MRA NECK WITHOUT COMPLETED DATE/TIME: 09/28/2018 1:38 pm REASON FOR STUDY: CAROTID STENOSIS (I65.29) I65.29 OCCLUSION AND STENOSIS OF UNSPECIFIED CAROTID AR JOSHUA COMPARISON: None. TECHNIQUE: Axial 2-D volume acquisition imaging through the extracranial carotid and vertebral arter ies with reformatting using 3-D MIPS. LIMITATIONS: Motion. FINDINGS: RIGHT CAROTID ARTERY: No stenosis or occlusive changes. Limited visualization of the orig in. LEFT CAROTID ARTERY: No stenosis or occlusive changes. Limited visualization of the origin. VERTEBRAL ARTERY: The extracranial portions of the vertebral basilar system are preserved without shilpi nosis. No aneurysmal dilatation or dissection is seen. OTHER: Tortuous proximal ICAs. IMPRESSION: NO SIGNIFICANT STENOSIS. COMMENT: Quality ID #[id number]: Measurements of distal internal carotid diameter were used as the denomin ator for stenosis measurement. TECHNICAL DOCUMENTATION: JOB ID: [id number] [employer]- All Rights Reserved Reading location - IP/workstation name: [email or web address]
== END ==
LOC: RAD 12:44
PROVIDERS: ATTEND Internal Medicine
DX: I65.29 Occlusion and stenosis of unspecified carotid artery (principal)
CPT/HCPCS: 70547

== ENCOUNTER → 2018-11-30 | Outpatient (CLI) | payer BC ==
--- NOTE | 2018-11-30 11:17 | WOMENS IMAGING REPORT ---
EXAM DESCRIPTION: U/S ABDOMEN TOTAL COMPLETED DATE/TIME: 11/30/2018 10:41 am REASON FOR STUDY: ABD COMPLETE;R10.9 R10.9 UNSPECIFIED ABDOMINAL PAIN COMPARISON: None. TECHNIQUE: Dynamic and static grayscale images acquired of the abdomen and recorded on PACS. Additio nal selected color Doppler and spectral images recorded. Note: Study does not meet criteria for complete doppler/duplex scan LIMITATIONS: None. FINDINGS: PANCREAS: The head and body of the pancreas are of normal echogenicity. The tail is obsc ured by overlying bowel gas. LIVER: The liver measures 15.4 cm, normal size. No masses. Echotexture normal. LIVER VASCULATURE: Normal directional flow of the main portal vein and hepatic veins. GALLBLADDER: Prior cholecystectomy. ULTRASOUND-DETECTED ROMERO'S SIGN: Negative. INTRAHEPATIC DUCTS AND COMMON DUCT: CBD measures 11.0 mm in a post cholecystectomy patient. The int rahepatic ducts normal caliber. No filling defects. INFERIOR VENA CAVA: Normal flow. AORTA: No aneurysm. RIGHT KIDNEY: The right kidney measures 11.6 x 4.8 x 5.0 cm, normal size. Normal echogenicity. N o solid or suspicious masses. No hydronephrosis. No calcifications. LEFT KIDNEY: The left kidney measures 11.6 x 3.9 x 5.1 cm, normal size. Normal echogenicity. No solid or suspicious masses. No hydronephrosis. No calcifications. SPLEEN: Marked splenomegaly. The spleen measures 22.0 cm in length. No solid masses. PERITONEAL AND PLEURAL SPACES: No ascites or effusions. OTHER: No other significant finding. IMPRESSION: 1. Marked splenomegaly. 2. Prior cholecystectomy. 3. The tail of the pancreas is obscured by overlying bowel gas. TECHNICAL DOCUMENTATION: JOB ID: [id number] [employer]- All Rights Reserved Reading location - IP/workstation name: [email or web address]
== END ==
LOC: WI 10:13
PROVIDERS: ATTEND Internal Medicine
DX: R10.9 Unspecified abdominal pain (principal); R16.1 Splenomegaly, not elsewhere classified
CPT/HCPCS: 76700

== ENCOUNTER → 2019-06-02 | Outpatient (CLI) | payer BC ==
--- NOTE | 2019-06-02 15:43 | RADIOLOGY REPORT (SQ) ---
EXAM DESCRIPTION: NM MUGA REST COMPLETED DATE/TIME: 06/02/2019 3:25 pm REASON FOR STUDY: ENCTR FOR ANTINEOPLASTIC CHEMOTHERAPY (Z51.11) Z51.11 ENCOUNTER FOR ANTINEOPLASTI C CHEMOTHERAPY Z08 ENCNTR FOR FOLLOW-UP EXAM AFTER TRTMT FOR MALIGNANT NEOP COMPARISON: None. RADIONUCLIDE AND DOSE: 25.5 mCi technetium 99m labeled red blood cells The route of agent administration: Intravenous TECHNIQUE: Following administration of the radionuclide, gated images of the heart are obtained in t hree projections. Left ventricular functional analysis performed. LIMITATIONS: None. FINDINGS: LEFT VENTRICULAR FUNCTION: EJECTION FRACTION: 61%. END-DIASTOLIC VOLUME: 119 mL. END-SYSTOLIC VOLUME: 48 mL. WALL MOTION: No focal wall motion abnormalities. OTHER: No other significant finding. IMPRESSION: NORMAL CARDIAC MUGA STUDY. NORMAL LEFT VENTRICULAR FUNCTION WITH VALUES ABOVE. TECHNICAL DOCUMENTATION: JOB ID: [id number] [employer]- All Rights Reserved Reading location - IP/workstation name: [email or web address]
== END ==
LOC: RAD 13:58
PROVIDERS: ATTEND Internal Medicine Hematology & Oncology
DX: Z13.6 Encounter for screening for cardiovascular disorders (principal); Z08 Encounter for follow-up examination after completed treatment for malignant neoplasm
CPT/HCPCS: 78472; A9560; Q9969

== ENCOUNTER → 2019-06-09 | Outpatient (CLI) | payer BC ==
--- NOTE | 2019-06-09 14:38 | RADIOLOGY REPORT (SQ) ---
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 TECHNIQUE: Post IV contrasted scanning from skull base through lung apices with review of bone, soft tissue and lung windows. Reconstructed coronal and sagittal MPR images reviewed. All images stored on PACS. All CT scanners at this facility use dose modulation, iterative reconstruction, and/or weight based d osing when appropriate to reduce radiation dose to as low as reasonably achievable (ALARA). [facility]: Dose Right [facility]: CareDose [facility]: Dose Right [facility]: Teradose 4D [facility]: Turn CONTRAST TYPE AND DOSE: 78 mL Omnipaque 350 RENAL FUNCTION: Creatinine 0.5 RADIATION DOSE: . LIMITATIONS: None. FINDINGS: SKULL BASE: Intact. MAJOR SALIVARY GLANDS: No solid or cystic masses. No inflammatory changes. LYMPHADENOPATHY: No pathologic adenopathy. There are small level 5 cervical nodes. MUCOSAL MASSES OR ASYMMETRY: No mucosal masses or asymmetry. LARYNX/CORDS: No abnormal findings. VASCULAR STRUCTURES: The major vessels are patent. LUNG APICES: Clear. BONES: Intact. THYROID: Normal size. No masses. PARANASAL SINUSES: Clear. OTHER: No other significant finding. IMPRESSION: No evidence of metastatic disease in the neck. TECHNICAL DOCUMENTATION: JOB ID: [id number] Quality ID # [id number]: Final reports with documentation of one or more dose reduction techniques (e.g., Au tomated exposure control, adjustment of the mA and/or kV according to patient size, use of iterative reconstruction technique) 2010 [employer]- All Rights Reserved Reading location - IP/workstation name: [email or web address]
--- NOTE | 2019-06-09 14:47 | RADIOLOGY REPORT (SQ) ---
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 IMPRESSION: Please see combined report for performance of procedure and radiologic supervision and i nterpretation. Reading location - IP/workstation name: [email or web address]
--- NOTE | 2019-06-09 14:47 | RADIOLOGY REPORT (SQ) ---
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 Images reviewed with lung, soft tissue and bone windows. Reconstructed coronal a nd sagittal MPR images reviewed. All images stored on PACS. All CT scanners at this facility use dose modulation, iterative reconstruction, and/or weight based d osing when appropriate to reduce radiation dose to as low as reasonably achievable (ALARA). [facility]: Dose Right [facility]: CareDose [facility]: Dose Right [facility]: [place]. com. cn [facility]: COINLAB RADIATION DOSE: . LIMITATIONS: None. FINDINGS: AXILLAE: No adenopathy. CHEST WALL: No masses. No subcutaneous air. LUNGS: No suspicious pulmonary nodules. Minimal ground-glass opacity in the right medial base most l ikely scar. PLEURA: No effusions. No calcifications. THYROID: No masses or significant asymmetry. HILAR AND MEDIASTINAL STRUCTURES: No identified masses or abnormal nodes. AORTA AND GREAT VESSELS: No aneurysm. No dissection. PULMONARY ARTERIES: No identified pulmonary emboli. Study not optimized for the pulmonary arteries. HEART: No pericardial effusion. HARDWARE AND LIFELINES: None. BONES: No significant finding. OTHER: No other significant finding. IMPRESSION: No evidence of metastatic disease in the chest. COMPARISON: None. RADIATION DOSE: mGy. TECHNIQUE: CT scan of the abdomen performed with intravenous and oral contrast using helical scannin g technique with dynamic intravenous contrast injection. Images reviewed with lung, soft tissue and bone windows. Reconstructed coronal and sagittal MPR images reviewed. Delayed images for evaluation of the urinary system also acquired and evaluated. All images stored on PACS. All CT scanners at this facility use dose modulation, iterative reconstruction, and/or weight based d osing when appropriate to reduce radiation dose to as low as reasonably achievable (ALARA). [facility]: Dose Right [facility]: SureCare [facility]: Dose Right [facility]: TerDovme Kosmeticse 4D [facility]: COINLAB FINDINGS: LIVER: Normal size. No masses. No dilated ducts. SPLEEN: Increasing splenomegaly. Focal soft tissue mass adjacent to the spleen and just inferior to the adrenal glands is again noted. It is increased in size and now measures 3.6 cm compared to appro ximately 3.2 cm on prior study. PANCREAS: No masses. No significant calcifications. No adjacent inflammation or peripancreatic flui d collections. Pancreatic duct not dilated. GALLBLADDER: Surgically absent. ADRENAL GLANDS: No masses. RIGHT KIDNEY AND URETER: No solid masses. No significant calcifications. No hydronephrosis or hyd roureter. LEFT KIDNEY AND URETER: No solid masses. No significant calcifications. No hydronephrosis or hydr oureter. AORTA AND VESSELS: No aneurysm. No dissection. Renal arteries, SMA, celiac without stenosis. RETROPERITONEUM: No retroperitoneal adenopathy, hemorrhage or masses. LARGE AND SMALL BOWEL: No dilatation. No masses. No wall thickening. APPENDIX: Incompletely visualized. ABDOMINAL WALL: No hernia or masses. PERITONEAL CAVITY: No free air. No free fluid. No peritoneal implants or masses. BONES: No significant or acute findings. OTHER: No other significant finding. IMPRESSION: Massive splenomegaly. Spleen measures 21.6 cm in cranial caudal dimensions compared 18. 4 cm on prior study. Focal soft tissue mass adjacent to the spleen has increased in size and now measures up to 3.6 cm. T his could represent necrotic lymph node. TECHNICAL DOCUMENTATION: JOB ID: [id number] Quality ID # [id number]: Final reports with documentation of one or more dose reduction techniques (e.g., Au tomated exposure control, adjustment of the mA and/or kV according to patient size, use of iterative reconstruction technique) 2010 [employer]- All Rights Reserved Reading location - IP/workstation name: [email or web address]
== END ==
LOC: RAD 13:17
PROVIDERS: ATTEND Internal Medicine Hematology & Oncology
DX: C83.07 Small cell B-cell lymphoma, spleen (principal)
CPT/HCPCS: 70491; 71260; 74160; 82565

== ENCOUNTER 2019-06-23 12:41 | Day surgery (SDC) | payer BC ==
[~2019-06-23 12:41] MED LIST changes: +ACETAMINOPHEN 325 MG TABLET PO PRN; +CEFAZOLIN SODIUM 1 GM in DEXTROSE 5%-WATER 50 ML IV PRN; +FENTANYL CITRATE INJ/PF 100 MCG/2 ML AMPUL ONE; +MIDAZOLAM 2 MG/2 ML INJ ONE; +ONDANSETRON HCL INJ/PF 4 MG/2 ML SDV ONE; +RINGERS SOLUTION,LACTATED 1,000 ML IV PRN
[2019-06-23] MEDS ORDERED: LIDOCAINE 1%/EPINEPHRINE INJ 20 ML VIAL ONE (13:17)
[2019-06-23 13:31] LABS: HEMATOCRIT 35.7 % (36.0-47.0); HEMOGLOBIN 11.3 g/dL (12.0-15.5); MEAN CORPUSCULAR HEMOGLOBIN 23.9 pg (27.0-33.4); MEAN CORPUSCULAR HGB CONC 31.7 g/dL (32.0-36.0); MEAN CORPUSCULAR VOLUME 76 fl (80-97); PLATELET COUNT 146 10^3/uL (150-450); RED BLOOD COUNT 4.73 10^6/uL (3.72-5.28); RED CELL DISTRIBUTION WIDTH 20.9 % (11.5-14.0); WHITE BLOOD COUNT 4.7 10^3/uL (4.0-10.5)
[2019-06-23] MEDS ORDERED: DIPHENHYDRAMINE HCL 50 MG/ML VIAL IV PRN (13:55)
[2019-06-23] MEDS ORDERED: OXYCODONE-ACETAMINOPHEN 5-325 MG TABLET PO PRN ×2 (13:55)
[2019-06-23] MEDS ORDERED: FENTANYL CITRATE INJ/PF 100 MCG/2 ML AMPUL IV PRN ×3 (13:55)
[2019-06-23] MEDS ORDERED: MEPERIDINE HCL/PF INJ 25 MG/1 ML DISP.SYRIN IV PRN (13:55)
[2019-06-23] MEDS ORDERED: ONDANSETRON HCL INJ/PF 4 MG/2 ML SDV IV PRN (14:00)
--- NOTE | 2019-06-23 14:33 | Discharge Summary ---
Discharge Summary (SDC) - Discharge Final Diagnosis: Small cell lymphoma Date of Surgery: 06/23/19 Discharge Date: 06/23/19 Condition: Good Treatment or Instructions: Patient resume preoperative medications, diet, activity; may take sponge bath for 48 hours then regular shower. May use catheter. Referrals: NADEEM VÁZQUEZ MD [Primary Care Provider] - Discharge Diet: As Tolerated Discharge Activity: Activity As Tolerated Home Care Assistance: None Needed Report the Following to Your Physician Immediately: Shortness of Breath, Increase in Pain, Fever over 101 Degrees
--- NOTE | 2019-06-23 14:37 | Operative Report ---
Operative Report DATE OF SURGERY: 06/23/19 PREOPERATIVE DIAGNOSIS: Small cell lymphoma POSTOPERATIVE DIAGNOSIS: Same OPERATION: 1. Focused ultrasound right internal jugular vein. 2. Right subclavian Hthauw-p-Ncez catheter placement. 3. Interpretation of intraoperative fluoroscopy SURGEON: NOVA FONG ANESTHESIA: LMAC TISSUE REMOVED OR ALTERED: None COMPLICATIONS: None ESTIMATED BLOOD LOSS: Scant INTRAOPERATIVE FINDINGS: See below PROCEDURE: She is seen in preop holding her right neck marked, then taken the main operating room where LMAC anesthesia was induced. Arms tucked at the side, support pillow between the shoulder blades installed. The right neck chest wall were prepped and draped in sterile fashion Surgical plan surgical timeout were conducted. Using ultrasound as a guide, the right internal jugular vein was cannulated with a micro needle and wire after adequte instillation of local anesthesia, 1% lidocaine. Fluoroscopically the wire was in the superior vena cava A suitable site for placement of the port was chosen in the right subclavian position. The skin was anesthetized with local 1% lidocaine, and a 3 and half centimeter incision was made with a #10 blade. A subcutaneous pocket was developed with electrocautery and blunt dissection large enough to accommodate a single chamber Uaerqn-f-Axuf catheter. The catheter then was tunneled between the 2 incisions, trimmed to the appropriate length, and attached to the port with the plastic ring securing it into position. The port was tucked into the right subclavian pocket The micro wire was switched over to a conventional guidewire using the micro introducer sheath. We then threaded the 8.8 Belgian dilator introducer sheath over the wire the wire was removed along with the dilator, catheter fragment threaded into the right internal jugular vein and strip away sheath removed leaving the catheter in good position. Fluoroscopically at the tip of the catheter was in the superior vena cava and there is no evidence of kinking of the catheter at any sites. We aspirated and flushed the chamber with heparinized saline and it functioned satisfactorily. Wounds closed with 3-0 Vicryl benzoin and Steri-Strips. Patient tolerated procedure well, taken recovery in stable condition.
--- NOTE | 2019-06-23 15:12 | RADIOLOGY REPORT (SQ) ---
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 FLUOROSCOPY TIME: 0.2 minutes Spot images saved to PACS. TECHNIQUE: Intra-operative images acquired during surgical procedure to evaluate progress. NUMBER OF IMAGES: 3 LIMITATIONS: None. FINDINGS: Fluoroscopy was provided for intraoperative procedure. Please refer to the operative repo rt for further discussion. IMPRESSION: IMAGE(S) OBTAINED DURING PROCEDURE. COMMENT: Quality ID [id number]: Final reports for procedures using fluoroscopy that document radiation exp osure indices, or exposure time and number of fluorographic images (if radiation exposure indices are not available) Please consult full operative report of the attending physician for description of the procedure. TECHNICAL DOCUMENTATION: JOB ID: [id number] [employer]- All Rights Reserved Reading location - IP/workstation name: [email or web address]
[2019-06-23] MEDS ORDERED: OXYCODONE-ACETAMINOPHEN 5-325 MG TABLET ONE (15:35)
[2019-06-23 16:27] VITALS: BP 126/65
== END 2019-06-23 16:31 | disposition home or self-care (01) ==
LOC: OROUT 12:41
PROVIDERS: ATTEND Surgery
DX: C83.07 Small cell B-cell lymphoma, spleen (principal); I10 Essential (primary) hypertension; E03.9 Hypothyroidism, unspecified; Z79.899 Other long term (current) drug therapy
CPT/HCPCS: 36561; 36415; 85027; 77001; C1752; C1788; J2250; J0690; J3010; J3490; J2405; J7060; J2704; J1642; 532

== ENCOUNTER 2019-11-29 13:41 | Inpatient (IN) | payer BC ==
--- NOTE | 2019-11-29 14:12 | ER Document Report ---
ED General - General Chief Complaint: Fever Stated Complaint: FEVER Time Seen by Provider: 11/29/19 14:02 Primary Care Provider: NADEEM VÁZQUEZ MD [Primary Care Provider] - Follow up as needed TRAVEL OUTSIDE OF THE [place] IN LAST 30 DAYS: No - HPI Onset: Other - for the last 7 days Onset/Duration: Gradual Quality of pain: Achy Severity: Moderate Pain Level: 3 Associated symptoms: Body/muscle aches, Chills, Diarrhea, Fever, Weakness. denies: Nonproductive cough, Productive cough, Vomiting, Rhinnorhea, Shortness of breath, Sore throat Exacerbated by: Denies Relieved by: Denies Similar symptoms previously: No Recently seen / treated by doctor: Yes - patient had Chemotherapy on November 18 Notes: 59 year old female with a history of B Cell Lymphoma (last and final Chemo treatment was on November 18), HTN, CVA, Seizures, Hypothyroidism, GERD here in the ER for 1 week of fevers, foul smelling urine, mild pain with urination, diarrhea, chills, weakness, and left side flank pain. The patient tells me she has been having diarrhea/loose since starting Chemotherapy. The patient denies cough, congestion, sore throat, runny nose. - Related Data Allergies/Adverse Reactions: No Known Allergies Allergy (Verified 11/29/19 14:08) Past Medical History - General Information source: Patient - Social History Smoking Status: Never Smoker Frequency of alcohol use: None Drug Abuse: None Family History: Reviewed & Not Pertinent - Past Medical History Cardiac Medical History: Reports: Hx Hypertension Denies: Hx Coronary Artery Disease, Hx Heart Attack Pulmonary Medical History: Denies: Hx Asthma, Hx Bronchitis, Hx COPD, Hx Pneumonia Neurological Medical History: Reports: Hx Cerebrovascular Accident - RIGHT SIDED STROKE 4 YEARS AGO, Hx Seizures - 2 YEARS AGO Endocrine Medical History: Reports: Hx Hypothyroidism Renal/ Medical History: Denies: Hx Peritoneal Dialysis GI Medical History: Reports: Hx Gastroesophageal Reflux Disease Musculoskeletal Medical History: Denies Hx Arthritis Psychiatric Medical History: Reports: Hx Depression Past Surgical History: Reports: Hx Cholecystectomy. Denies: Hx Hysterectomy - Immunizations Hx Diphtheria, Pertussis, Tetanus Vaccination: Yes - tdap given tonight Review of Systems - Review of Systems Constitutional: Fever EENT: No symptoms reported Cardiovascular: No symptoms reported Respiratory: No symptoms reported Gastrointestinal: Diarrhea Genitourinary: Dysuria, Frequency, Flank pain, Urgency Female Genitourinary: No symptoms reported Musculoskeletal: Muscle pain Skin: No symptoms reported Hematologic/Lymphatic: No symptoms reported Neurological/Psychological: No symptoms reported -: Yes All other systems reviewed and negative Physical Exam - Vital signs Vitals: Temp 103.4 F H 11/29/19 13:42 - Notes Notes: GENERAL: Chronically ill appearing, in mild acute distress. HEAD: Atraumatic, normocephalic. EYES: Pupils equal round and reactive to light, extraocular movements intact, sclera anicteric, conjunctiva are normal. ENT: Nares patent, oropharynx clear without exudates. Moist mucous membranes. NECK: Normal range of motion, supple without lymphadenopathy or JVD. LUNGS: Breath sounds clear to auscultation bilaterally and equal. No wheezes rales or rhonchi. HEART: Regular rate and rhythm without murmurs, rubs or gallops. ABDOMEN: Soft, nontender, normoactive bowel sounds. No guarding, no rebound. No masses appreciated. : Left flank tenderness EXTREMITIES: Normal range of motion, no pitting or edema. No clubbing or cyanosis. NEUROLOGICAL: Cranial nerves II through XII grossly intact. Normal speech, normal gait. PSYCH: Normal mood, normal affect. SKIN: Warm, Dry, normal turgor, no rashes or lesions noted. Course - Re-evaluation Re-evalutation: 11/29/19 17:12 The patient is here for 1 week of fevers, pain with urination, foul smelling urine and left flank pain. The patient finished Chemo on November 18. I spoke with the patient's Oncologist Dr. Zaragoza who wanted me to make sure the patient was not Neutropenic. Work up here in the ER shows pyelonephritis with no Neutropenia. Hospitalist (Dr. Wylie) called for admission and he requested a CT scan which confirmed the clinical diagnosis of left sided pyelonephritis. Patient had ESBL in [address] Wylie requested a dose of Meropenem in the ER. Patient was placed in the COVID precaution area due to fevers and apparently she has had contact with family members from [place]. Dr. Wylie therefore wanted the patient tested for COVID as well. - Vital Signs Vital signs: Temp Pulse Resp BP Pulse Ox 103.0 F H 104 H 30 H 142/92 H 98 11/29/19 14:27 11/29/19 15:00 11/29/19 14:00 11/29/19 15:00 11/29/19 14:01 - Laboratory Result Diagrams: 11/29/19 14:16 11/29/19 14:16 Laboratory results interpreted by me: 11/29/19 11/29/19 11/29/19 14:16 14:16 14:16 RBC 3.71 L Hgb 11.7 L Hct 32.7 L RDW 14.7 H Plt Count 111 L Seg Neuts % (Manual) 91 H Lymphocytes % (Manual) 1 L Abs Lymphs (Manual) 0.0 L Sodium 132.5 L Glucose 142 H Urine Protein 30 H Urine Nitrite POSITIVE H Ur Leukocyte Esterase SMALL H - Diagnostic Test Radiology reviewed: Image reviewed, Reports reviewed Discharge - Discharge Clinical Impression: Pyelonephritis Condition: Fair Disposition: ADMITTED INPATIENT Admitting Provider: Inessa (Hospitalist) Unit Admitted: Medical Floor Referrals: NADEEM VÁZQUEZ MD [Primary Care Provider] - Follow up as needed
[2019-11-29] MEDS ORDERED: NORMAL SALINE 1000 ML 1,000 ML IV ONE (14:37)
[2019-11-29] MEDS ORDERED: ACETAMINOPHEN 325 MG TABLET PO ONE (14:38)
[2019-11-29 14:53] LABS: HEMATOCRIT 32.7 % (36.0-47.0); HEMOGLOBIN 11.7 g/dL (12.0-15.5); MEAN CORPUSCULAR HEMOGLOBIN 31.4 pg (27.0-33.4); MEAN CORPUSCULAR HGB CONC 35.7 g/dL (32.0-36.0); MEAN CORPUSCULAR VOLUME 88 fl (80-97); PLATELET COUNT 111 10^3/uL (150-450); RED BLOOD COUNT 3.71 10^6/uL (3.72-5.28); RED CELL DISTRIBUTION WIDTH 14.7 % (11.5-14.0); WHITE BLOOD COUNT 4.9 10^3/uL (4.0-10.5)
[2019-11-29 15:10] LABS: ALBUMIN 3.9 g/dL (3.5-5.0); ALKALINE PHOSPHATASE 102 U/L (38-126); ANION GAP 7 (5-19); ASPARTATE AMINO TRANSFERASE 23 U/L (14-36); BILIRUBIN,TOTAL 0.8 mg/dL (0.2-1.3); BLOOD UREA NITROGEN 12 mg/dL (7-20); CALCIUM 8.8 mg/dL (8.4-10.2); CARBON DIOXIDE 27 mmol/L (22-30); CHLORIDE 99 mmol/L (98-107); GLUCOSE 142 mg/dL (75-110); POTASSIUM 3.9 mmol/L (3.6-5.0); TOTAL PROTEIN 6.5 g/dL (6.3-8.2)
[2019-11-29 15:28] LABS: AMORPHOUS SEDIMENT,URINE TRACE /HPF; APPEARANCE,URINE SLIGHTLY-CLOUDY; BILIRUBIN,URINE NEGATIVE (NEGATIVE); COLOR,URINE YELLOW; GLUCOSE, URINE NEGATIVE (NEGATIVE); KETONES,URINE NEGATIVE (NEGATIVE); LEUKOCYTE ESTERASE,URINE SMALL (NEGATIVE); NITRITE,URINE POSITIVE (NEGATIVE); PROTEIN,URINE 30 mg/dL (NEGATIVE); UROBILINOGEN,URINE NEGATIVE mg/dL (<2.0)
[2019-11-29 15:34] LABS: ABSOLUTE MONOCYTES # (MANUAL) 0.4 10^3/uL (0.1-1.4); BASOPHILS % (MANUAL) 0 % (0-2); EOSINOPHILS % (MANUAL) 0 % (0-6); LYMPHOCYTES % (MANUAL) 1 % (13-45); MONOCYTES % (MANUAL) 8 % (3-13); SEGMENTED NEUTROPHILS % (MAN) 91 % (42-78); TOTAL CELLS COUNTED 100
[2019-11-29 15:36] LABS: OVALOCYTES SLIGHT; TOXIC GRANULATION SLIGHT
[2019-11-29 15:37] LABS: ANISOCYTOSIS SLIGHT; PLATELET COMMENT DECREASED
[2019-11-29] MEDS ORDERED: MEROPENEM 1 GM VIAL IV ONE (16:09)
[2019-11-29] MEDS ORDERED: ONDANSETRON HCL INJ/PF 4 MG/2 ML SDV IV PRN (16:50)
--- NOTE | 2019-11-29 17:08 | PDOC H&P ---
History of Present Illness Admission Date/PCP: NADEEM VÁZQUEZ MD Patient complains of: Fever for more than a week History of Present Illness: HAZEL BORGES is a 59 year old female with history of B-cell lymphoma, hypertension, history of CVA, seizure disorder, hypothyroidism, gastroparesis reflux disease, history of ESBL E. coli went to see Dr. Boo in her office with complaints of high-grade fever for more than a week. He also complained about foul-smelling and burning urination for the more than a week associated with left flank pain. Patient was referred to the ER for further evaluation. Patient denies any cough shortness of breath or wheezing. Her main concern is fever associated with burning urination and foul-smelling urination, left flank pain and constipation. She denies any recent history of travel but her nephews came to visit her from [place] 3 days ago. As per the patient no close family members are tested positive for coronavirus. Because of the immunocompromise state and came in with history of high-grade fever plan is to go ahead and do the coronavirus testing and arrange for droplet isolation's. CRP, procalcitonin, d-dimer, ferritin levels are requested. Cultures blood cultures were sent from the ER and the patient was started on IV meropenem in the emergency room. Past Medical History Cardiac Medical History: Reports: Hypertension Denies: Coronary Artery Disease, Myocardial Infarction Pulmonary Medical History: Denies: Asthma, Bronchitis, Chronic Obstructive Pulmonary Disease (COPD), Pneumonia Neurological Medical History: Reports: Seizures - 2 YEARS AGO Endocrine Medical History: Reports: Hypothyroidism GI Medical History: Reports: Gastroesophageal Reflux Disease Musculoskeltal Medical History: Denies: Arthritis Psychiatric Medical History: Reports: Depression Hematology: Denies: Anemia Past Surgical History Past Surgical History: Reports: Cholecystectomy Denies: Hysterectomy Social History Smoking Status: Never Smoker Electronic Cigarette use?: No Frequency of Alcohol Use: Rare Hx Recreational Drug Use: No Hx Prescription Drug Abuse: No - Advance Directive Resuscitation Status: Full Code Family History Family History: Reviewed & Not Pertinent Parental Family History Reviewed: Yes - Family history of hypertension and heart disease. Children Family History Reviewed: Yes Sibling(s) Family History Reviewed.: Yes Medication/Allergy Home Medications: Carvedilol [Coreg 3.125 mg Tablet] 3.125 mg PO Q12 06/22/19 Levothyroxine Sodium 88 mcg PO ASDIR PRN 06/22/19 Allergies/Adverse Reactions: No Known Allergies Allergy (Verified 11/29/19 14:08) Review of Systems ROS unobtainable: Other - Patient is unable to speak Romansh most of the communication was done with help of photographic process screen maker using sergio Constitutional: PRESENT: chills, fatigue, fever(s), night sweats, weakness. ABSENT: headache(s) Eyes: ABSENT: visual disturbances Ears: ABSENT: hearing changes Nose, Mouth, and Throat: ABSENT: sore throat Cardiovascular: ABSENT: dyspnea on exertion, orthropnea, palpitations Respiratory: ABSENT: dyspnea, hemoptysis Gastrointestinal: PRESENT: constipation Genitourinary: PRESENT: dysuria, other - Foul-smelling urine with increased frequency of urination associated with left flank pain. Integumentary: ABSENT: rash, wounds Neurological: ABSENT: abnormal gait, abnormal speech, confusion, dizziness, focal weakness, syncope Psychiatric: ABSENT: anxiety, depression, homidical ideation, suicidal ideation Endocrine: ABSENT: cold intolerance, heat intolerance, polydipsia, polyuria Physical Exam Vital Signs: Temp Pulse Resp BP Pulse Ox 103.0 F H 104 H 30 H 142/92 H 98 11/29/19 14:27 11/29/19 15:00 11/29/19 14:00 11/29/19 15:00 11/29/19 14:01 Intake & Output 11/28/19 11/29/19 11/30/19 06:59 06:59 06:59 Intake Total 1000 Balance 1000 Weight 170 kg General appearance: PRESENT: mild distress, obese Head exam: PRESENT: atraumatic Eye exam: PRESENT: PERRLA Ear exam: PRESENT: normal external ear exam Mouth exam: PRESENT: neck supple Teeth exam: PRESENT: poor dentation Neck exam: ABSENT: carotid bruit, JVD, lymphadenopathy, thyromegaly Respiratory exam: PRESENT: decreased breath sounds Cardiovascular exam: PRESENT: RRR. ABSENT: diastolic murmur, rubs, systolic murmur GI/Abdominal exam: PRESENT: normal bowel sounds, other - lt Flank pain on palpation. Rectal exam: PRESENT: deferred Neurological exam: PRESENT: alert, awake, oriented to person, oriented to place, oriented to time, oriented to situation, CN II-XII grossly intact. ABSENT: motor sensory deficit Psychiatric exam: PRESENT: appropriate affect, normal mood. ABSENT: homicidal ideation, suicidal ideation Results Laboratory Results: 11/29/19 14:16 11/29/19 14:16 11/29/19 11/29/19 11/29/19 14:16 14:16 14:16 WBC 4.9 RBC 3.71 L Hgb 11.7 L Hct 32.7 L MCV 88 MCH 31.4 MCHC 35.7 RDW 14.7 H Plt Count 111 L Seg Neutrophils % Not Reportable Sodium 132.5 L Potassium 3.9 Chloride 99 Carbon Dioxide 27 Anion Gap 7 BUN 12 Creatinine 0.52 Est GFR ( Amer) > 60 Glucose 142 H Calcium 8.8 Total Bilirubin 0.8 AST 23 Alkaline Phosphatase 102 Total Protein 6.5 Albumin 3.9 Urine Color YELLOW Urine Appearance SLIGHTLY-CLOUDY Urine pH 6.0 Ur Specific [place] 1.010 Urine Protein 30 H Urine Glucose (UA) NEGATIVE Urine Ketones NEGATIVE Urine Blood NEGATIVE Urine Nitrite POSITIVE H Ur Leukocyte Esterase SMALL H Urine WBC (Auto) 45 Urine RBC (Auto) 1 Assessment and Plan - Diagnosis (1) Pyelonephritis Is this a current diagnosis for this admission?: Yes Plan: 11/29/2019-patient is going to be admitted to fifth floor with a droplet isolation with a diagnosis of acute pyelonephritis. Patient will be inpatient. Blood cultures urine cultures are pending, coronavirus testing was requested. Flu testing was requested. GI prophylaxis DVT prophylaxis initiated started on a IV meropenem. Scan with contrast was requested for further management. (2) B-cell lymphoma Is this a current diagnosis for this admission?: No Plan: 11/29/2019-patient admitted with history of B-cell lymphoma she follows with Dr. Weaver as an outpatient. If needed will do consult Dr. Zaragoza. Last chemotherapy is on November 18 of this year. (3) COVID-19 Is this a current diagnosis for this admission?: Yes Plan: 11/29/2019-patient came in with history of high-grade fever of more than 103, recent family visit from [place] 3 days ago, and patient is also has immunocompromised state with B-cell lymphoma and recent history of chemotherapy. Plan is to do the influenza screen and coronavirus testing is requested. Droplet isolation will be requested. Serum ferritin, procalcitonin, CRP, d- dimer is requested. (4) HTN (hypertension) Is this a current diagnosis for this admission?: No Plan: 11/29/2019-patient has history of chronic essential hypertension blood pressure in the ER is 142/92. Plan is to restart her home medications and start her on IV hydralazine 10 mg every 6 hours PRN for systolic blood pressure more than 160. (5) Hyponatremia Is this a current diagnosis for this admission?: Yes Plan: 11/29/2019-patient serum sodium is 132.5. Hyponatremia most likely secondary to prerenal causes. (6) Sepsis Is this a current diagnosis for this admission?: No Plan: 11/29/19-patient came in with high-grade fever of more than 103 and abnormal urine analysis. Also complaining of left-sided flank pain most likely she has a pyelonephritis. Sepsis may be secondary to acute pyelonephritis. And was started on IV fluids at 175 cc/h. To check for plasma lactic acid levels.
[2019-11-29] MEDS ORDERED: HYDRALAZINE HCL INJ/PF 20 MG/1 ML SDV IV PRN (17:10)
--- NOTE | 2019-11-29 17:42 | RADIOLOGY REPORT (SQ) ---
EXAM DESCRIPTION: CT ABD/PELVIS WITH IV ONLY IMAGES COMPLETED DATE/TIME: 11/29/2019 4:19 pm REASON FOR STUDY: eval for complication of pyelonephritis. Right upper quadrant and left upper shakeel drant pain. Previous hysterectomy and cholecystectomy. History B-cell lymphoma. COMPARISON: CT chest, 06/09/2019. TECHNIQUE: CT scan of the abdomen and pelvis performed using helical scanning technique with dynamic intravenous contrast injection. No oral contrast. Images reviewed with lung, soft tissue, and bone windows. Reconstructed coronal and sagittal MPR images reviewed. Delayed images for evaluation of the urinary system also acquired. All images stored on PACS. All CT scanners at this facility use dose modulation, iterative reconstruction, and/or weight based d osing when appropriate to reduce radiation dose to as low as reasonably achievable (ALARA). [facility]: Dose Right [facility]: CareDose [facility]: Dose Right [facility]: Teradose 4D [facility]: [employer] CONTRAST TYPE AND DOSE: contrast/concentration: Isovue 350.00 mg/ml; Total Contrast Delivered: 90.0 ml; Total Saline Delivered: 59.4 ml RENAL FUNCTION: GFR > 60. RADIATION DOSE: CT Rad equipment meets quality standard of care and radiation dose reduction techniq ues were employed. CTDIvol: 9.7 - 13.8 mGy. DLP: 1275 mGy-cm.. LIMITATIONS: None. FINDINGS: LOWER CHEST: No significant findings. No nodules or infiltrates. LIVER: The liver has normal size and contour. There is moderate diffuse hepatic steatosis. No focal hepatic mass. Hepatic and portal veins are patent. No intrahepatic or extrahepatic biliary ductal dilation. SPLEEN: There is persistent but improved splenomegaly with spleen now measuring 13.1 cm craniocaudal at the midclavicular line, previously 22.5 cm when measured similarly. PANCREAS: No masses. No significant calcifications. No adjacent inflammation or peripancreatic fluid collections. Pancreatic duct not dilated. GALLBLADDER: No identified stones by CT criteria. No inflammatory changes to suggest cholecystitis. ADRENAL GLANDS: No significant masses or asymmetry. RIGHT KIDNEY AND URETER: No solid masses. No significant calcifications. No hydronephrosis or hyd roureter. LEFT KIDNEY AND URETER: Heterogeneous enhancement at the superior pole left kidney with adjacent infl ammatory change and striated nephrogram on the delayed phase images, consistent with left pyelonephri tis. No perinephric fluid or evidence of perinephric abscess. No significant calcifications. No hydronephrosis or hydroureter. AORTA AND VESSELS: No aneurysm. No dissection. Renal arteries, SMA, celiac without stenosis. RETROPERITONEUM: No retroperitoneal adenopathy, hemorrhage or masses. BOWEL AND PERITONEAL CAVITY: No masses or inflammatory changes. No free fluid or peritoneal masses. APPENDIX: Not visualized. PELVIS: Leiomyomatous uterus. No adnexal mass. ABDOMINAL WALL: No masses. No hernias. BONES: No significant or acute findings. OTHER: No other significant finding. IMPRESSION: 1. Heterogeneous enhancement with striated nephrogram the involving the superior and inferior poles o f the left kidney, consistent with pyelonephritis. There is mild surrounding inflammatory change. N o perinephric abscess or fluid. No ureteral obstruction. 2. Persistent but improved to splenomegaly, consistent with known history of B-cell lymphoma. 3. Moderate hepatic steatosis. TECHNICAL DOCUMENTATION: JOB ID: [id number] Quality ID # [id number]: Final reports with documentation of one or more dose reduction techniques (e.g., Au tomated exposure control, adjustment of the mA and/or kV according to patient size, use of iterative reconstruction technique) 2010 [employer]- All Rights Reserved Reading location - IP/workstation name: [email or web address]
[2019-11-29 18:06] LABS: C-REACTIVE PROTEIN 389.8 mg/L (<10.0)
[2019-11-29 19:42] LABS: A TYPE INFLUENZA AG NEGATIVE (NEGATIVE); B INFLUENZA AG NEGATIVE (NEGATIVE)
[2019-11-29 19:50] LABS: URINE AMPHETAMINES SCREEN NEGATIVE; URINE BARBITURATES SCREEN NEGATIVE; URINE BENZODIAZEPINES SCREEN NEGATIVE; URINE COCAINE SCREEN NEGATIVE; URINE MARIJUANA (THC) SCREEN NEGATIVE; URINE METHADONE SCREEN NEGATIVE; URINE PHENCYCLIDINE SCREEN NEGATIVE
[2019-11-29] MEDS ORDERED: MEROPENEM 1 GM VIAL IV SCH (22:00)
[2019-11-29] MEDS: HEPARIN SOD (PORCINE) 5,000 UNIT/ML 1 ML VIAL SUBCUT SCH (23:13)
[2019-11-29] MEDS: ACETAMINOPHEN 325 MG TABLET PO PRN (23:15)
[2019-11-29] MEDS: MEROPENEM 1 GM in NORMAL SALINE 50 ML IV SCH (23:15)
[2019-11-29] MEDS: FAMOTIDINE 20 MG TABLET PO SCH (23:15)
[2019-11-29] MEDS: NORMAL SALINE 1000 ML 1,000 ML IV PRN (23:20)
[2019-11-30 05:32] LABS: HEMATOCRIT 28.2 % (36.0-47.0); HEMOGLOBIN 10.1 g/dL (12.0-15.5); MEAN CORPUSCULAR HEMOGLOBIN 31.5 pg (27.0-33.4); MEAN CORPUSCULAR HGB CONC 35.7 g/dL (32.0-36.0); MEAN CORPUSCULAR VOLUME 88 fl (80-97); RED CELL DISTRIBUTION WIDTH 14.7 % (11.5-14.0); WHITE BLOOD COUNT 3.5 10^3/uL (4.0-10.5)
[2019-11-30 05:43] LABS: BLOOD UREA NITROGEN 9 mg/dL (7-20); CALCIUM 8.4 mg/dL (8.4-10.2); CARBON DIOXIDE 27 mmol/L (22-30); CHLORIDE 105 mmol/L (98-107); GLUCOSE 123 mg/dL (75-110)
[2019-11-30 05:44] LABS: ALBUMIN 3.2 g/dL (3.5-5.0); ALKALINE PHOSPHATASE 78 U/L (38-126); ANION GAP 5 (5-19); ASPARTATE AMINO TRANSFERASE 21 U/L (14-36); BILIRUBIN,TOTAL 0.6 mg/dL (0.2-1.3); CHOLESTEROL 138.83 mg/dL (0-200); CREATINE KINASE 37 U/L (30-135); TOTAL PROTEIN 5.7 g/dL (6.3-8.2); TRIGLYCERIDES 136 mg/dL (<150)
[2019-11-30 05:54] LABS: DIRECT LDL 53 mg/dL (<100)
[2019-11-30 05:55] LABS: NT PRO BNP 292 pg/mL (<125)
[2019-11-30 05:57] LABS: TROPONIN I < 0.012 ng/mL
[2019-11-30 06:03] LABS: ABSOLUTE MONOCYTES # (MANUAL) 0.4 10^3/uL (0.1-1.4); BASOPHILS % (MANUAL) 0 % (0-2); EOSINOPHILS % (MANUAL) 0 % (0-6); LYMPHOCYTES % (MANUAL) 1 % (13-45); MONOCYTES % (MANUAL) 12 % (3-13); SEGMENTED NEUTROPHILS % (MAN) 87 % (42-78); TOTAL CELLS COUNTED 100; TOXIC GRANULATION SLIGHT
[2019-11-30 06:08] LABS: ANISOCYTOSIS SLIGHT; PLATELET COMMENT DECREASED
[2019-11-30 06:09] LABS: PLATELET COUNT 89 10^3/uL (150-450)
[2019-11-30] MEDS: HEPARIN SOD (PORCINE) 5,000 UNIT/ML 1 ML VIAL SUBCUT SCH ×3 (06:30→22:22)
[2019-11-30] MEDS: MEROPENEM 1 GM in NORMAL SALINE 50 ML IV SCH ×3 (06:35→22:21)
[2019-11-30] MEDS ORDERED: TRAMADOL HCL 50 MG TABLET PO PRN (09:51)
[2019-11-30] MEDS: FAMOTIDINE 20 MG TABLET PO SCH ×2 (10:10→22:21)
[2019-11-30] MEDS: ACETAMINOPHEN 325 MG TABLET PO PRN ×2 (10:10→17:42)
[2019-11-30] MEDS: CARVEDILOL 3.125 MG TABLET PO SCH ×2 (11:13→22:21)
[2019-11-30] MEDS: LEVOTHYROXINE SODIUM 0.088 MG TABLET PO SCH (11:13)
--- NOTE | 2019-11-30 11:59 | PDOC PROGRESS REPORT ---
Subjective Progress Note for:: 11/30/19 Subjective:: The patient is resting comfortably. She states that she is feeling somewhat better. She is resting comfortably on room air. She states that she is not having much flank pain. Fever on admission was 103.4 degrees. She is down to 101.5 degrees this morning. Reason For Visit: PYELONEPHRITIS Physical Exam Vital Signs: Temp Pulse Resp BP Pulse Ox 101.5 F H 102 H 20 137/51 H 98 11/30/19 09:09 11/30/19 09:09 11/30/19 09:09 11/30/19 09:09 11/30/19 09:09 Intake & Output 11/29/19 11/30/19 12/01/19 06:59 06:59 06:59 Intake Total 1750 50 Balance 1750 50 Weight 74.7 kg General appearance: PRESENT: cooperative, mild distress, well-developed Head exam: PRESENT: atraumatic, normocephalic Eye exam: PRESENT: conjunctiva pink. ABSENT: scleral icterus Ear exam: PRESENT: normal external ear exam. ABSENT: bleeding, drainage Mouth exam: PRESENT: moist, tongue midline Respiratory exam: PRESENT: rales - Faint rales bilaterally, symmetrical, unlabored. ABSENT: rhonchi, tachypnea, wheezes Cardiovascular exam: PRESENT: RRR, +S1, +S2 GI/Abdominal exam: PRESENT: normal bowel sounds, soft. ABSENT: distended, guarding, tenderness Rectal exam: PRESENT: deferred Gentrourinary exam: ABSENT: indwelling catheter Extremities exam: ABSENT: pedal edema Musculoskeletal exam: PRESENT: ambulatory, normal inspection Neurological exam: PRESENT: alert, awake, oriented to person, oriented to place, oriented to situation, CN II-XII grossly intact Psychiatric exam: PRESENT: flat affect. ABSENT: agitated, anxious Skin exam: PRESENT: dry, normal color, warm. ABSENT: rash Results Laboratory Results: 11/30/19 04:54 11/30/19 04:54 11/29/19 11/29/19 11/29/19 14:16 14:16 14:16 WBC 4.9 RBC 3.71 L Hgb 11.7 L Hct 32.7 L MCV 88 MCH 31.4 MCHC 35.7 RDW 14.7 H Plt Count 111 L Seg Neutrophils % Not Reportable Sodium 132.5 L Potassium 3.9 Chloride 99 Carbon Dioxide 27 Anion Gap 7 BUN 12 Creatinine 0.52 Est GFR ( Amer) > 60 Glucose 142 H Calcium 8.8 Magnesium Ferritin Total Bilirubin 0.8 AST 23 Alkaline Phosphatase 102 C-Reactive Protein Total Protein 6.5 Albumin 3.9 Triglycerides Cholesterol LDL Cholesterol Direct VLDL Cholesterol HDL Cholesterol TSH Urine Color YELLOW Urine Appearance SLIGHTLY-CLOUDY Urine pH 6.0 Ur Specific [place] 1.010 Urine Protein 30 H Urine Glucose (UA) NEGATIVE Urine Ketones NEGATIVE Urine Blood NEGATIVE Urine Nitrite POSITIVE H Ur Leukocyte Esterase SMALL H Urine WBC (Auto) 45 Urine RBC (Auto) 1 11/29/19 11/30/19 11/30/19 14:16 04:54 04:54 WBC 3.5 L RBC 3.20 L Hgb 10.1 L Hct 28.2 L MCV 88 MCH 31.5 MCHC 35.7 RDW 14.7 H Plt Count 89 L Seg Neutrophils % Not Reportable Sodium 137.0 Potassium 4.0 Chloride 105 Carbon Dioxide 27 Anion Gap 5 BUN 9 Creatinine 0.53 Est GFR ( Amer) > 60 Glucose 123 H Calcium 8.4 Magnesium 2.0 Ferritin 238.00 Total Bilirubin 0.6 AST 21 Alkaline Phosphatase 78 C-Reactive Protein 389.8 H Total Protein 5.7 L Albumin 3.2 L Triglycerides 136 Cholesterol 138.83 LDL Cholesterol Direct 53 VLDL Cholesterol 27.0 HDL Cholesterol 45 TSH Urine Color Urine Appearance Urine pH Ur Specific [place] Urine Protein Urine Glucose (UA) Urine Ketones Urine Blood Urine Nitrite Ur Leukocyte Esterase Urine WBC (Auto) Urine RBC (Auto) 11/30/19 04:54 WBC RBC Hgb Hct MCV MCH MCHC RDW Plt Count Seg Neutrophils % Sodium Potassium Chloride Carbon Dioxide Anion Gap BUN Creatinine Est GFR ( Amer) Glucose Calcium Magnesium Ferritin Total Bilirubin AST Alkaline Phosphatase C-Reactive Protein Total Protein Albumin Triglycerides Cholesterol LDL Cholesterol Direct VLDL Cholesterol HDL Cholesterol TSH 2.37 Urine Color Urine Appearance Urine pH Ur Specific [place] Urine Protein Urine Glucose (UA) Urine Ketones Urine Blood Urine Nitrite Ur Leukocyte Esterase Urine WBC (Auto) Urine RBC (Auto) 11/29/19 16:10 Blood Blood Culture (PCR) - Final Escherichia Coli 11/29/19 11/29/19 11/29/19 18:39 18:39 22:56 Creatine Kinase 33 31 Troponin I < 0.012 NT-Pro-B Natriuret Pep 11/29/19 11/30/1920 22:56 04:54 04:54 Creatine Kinase 37 Troponin I < 0.012 < 0.012 NT-Pro-B Natriuret Pep 292 H Impressions: Abdomen/Pelvis CT 11/29/19 16:08 IMPRESSION: 1. Heterogeneous enhancement with striated nephrogram the involving the superior and inferior poles of the left kidney, consistent with pyelonephritis. There is mild surrounding inflammatory change. No perinephric abscess or fluid. No ureteral obstruction. 2. Persistent but improved to splenomegaly, consistent with known history of B- cell lymphoma. 3. Moderate hepatic steatosis. Assessment and Plan - Diagnosis (1) Pyelonephritis Is this a current diagnosis for this admission?: Yes Plan: 11/29/2019-patient is going to be admitted to fifth floor with a droplet isolation with a diagnosis of acute pyelonephritis. Patient will be inpatient. Blood cultures urine cultures are pending, coronavirus testing was requested. Flu testing was requested. GI prophylaxis DVT prophylaxis initiated started on a IV meropenem. Scan with contrast was requested for further management. 11/30/2019 Continue meropenem. E. coli has been isolated thus far. Urine and blood cultures are positive. Await final identification and sensitivities of all cultures. (2) COVID-19 Is this a current diagnosis for this admission?: Yes Plan: 11/29/2019-patient came in with history of high-grade fever of more than 103, recent family visit from [place] 3 days ago, and patient is also has immunocompromised state with B-cell lymphoma and recent history of chemotherapy. Plan is to do the influenza screen and coronavirus testing is requested. Droplet isolation will be requested. Serum ferritin, procalcitonin, CRP, d- dimer is requested. 11/30/2019 With recent chemotherapy she is high risk. She has an elevated d-dimer with an elevated C-reactive protein. Certainly bacteremia and pyelonephritis can contribute to these. She has 0 absolute lymphocytes likely from her recent chemotherapy. She has an obvious source of infection and this is probably the causative agent for her hospitalization. COVID-19 serology results still pending. (3) HTN (hypertension) Is this a current diagnosis for this admission?: No Plan: 11/29/2019-patient has history of chronic essential hypertension blood pressure in the ER is 142/92. Plan is to restart her home medications and start her on IV hydralazine 10 mg every 6 hours PRN for systolic blood pressure more than 160. 11/30/2019 She is currently on carvedilol. Blood pressures are now on the low side. Continue IV fluids at this time. (4) Hyponatremia Is this a current diagnosis for this admission?: Yes Plan: 11/29/2019-patient serum sodium is 132.5. Hyponatremia most likely secondary to prerenal causes. 11/30/2019-resolved (5) Sepsis Qualifiers: Sepsis type: Escherichia coli Sepsis acute organ dysfunction status: without acute organ dysfunction Qualified Code(s): A41.51 - Sepsis due to Escherichia coli [E. coli] Is this a current diagnosis for this admission?: Yes Plan: 11/30/2019 Blood pressure dropped today with MAP <70 and she continues to have a fever intermittantly. She is on antibiotics and receiving IV fluids for low BP. (6) Leukopenia Qualifiers: Leukopenia type: lymphocytopenia Qualified Code(s): D72.810 - Lymphocytopenia Is this a current diagnosis for this admission?: Yes Plan: 11/30/2019 The patient has a history of lymphoma. No active treatment at this time. She does have 0 absolute lymphocytes. Low lymphocytes is 1 of the characteristics of Covid-19 infection. She clearly has bacteremia and pyelonephritis and certainly this could be contributing. Monitor CBCs. (7) Thrombocytopenia Is this a current diagnosis for this admission?: Yes Plan: Possibly related to recent Chemo. Continue to monitor (8) History of B-cell lymphoma Is this a current diagnosis for this admission?: Yes Plan: No current treatment at this time - Time Time Spent with patient: 15-24 minutes Medications reviewed and adjusted accordingly: Yes
[2019-11-30] MEDS: NORMAL SALINE 1000 ML 1,000 ML IV PRN (13:39)
[2019-12-01] MEDS: NORMAL SALINE 1000 ML 1,000 ML IV PRN ×3 (05:06→23:13)
[2019-12-01] MEDS: LEVOTHYROXINE SODIUM 0.088 MG TABLET PO SCH (05:06)
[2019-12-01] MEDS: MEROPENEM 1 GM in NORMAL SALINE 50 ML IV SCH ×3 (05:06→21:34)
[2019-12-01] MEDS: HEPARIN SOD (PORCINE) 5,000 UNIT/ML 1 ML VIAL SUBCUT SCH ×3 (05:31→21:08)
[2019-12-01] MEDS: CARVEDILOL 3.125 MG TABLET PO SCH ×2 (09:29→21:19)
[2019-12-01] MEDS: FAMOTIDINE 20 MG TABLET PO SCH ×2 (16:34→21:19)
--- NOTE | 2019-12-01 18:36 | PDOC PROGRESS REPORT ---
Subjective Progress Note for:: 12/01/19 Subjective:: No adverse events overnight. Patient reports that she has had about 3 episodes of a white mucousy stool this morning and a little bit of right upper quadrant abdominal pain. She has not been nauseated but she is not had much of an appetite. She is been afebrile since very early yesterday morning. Reason For Visit: PYELONEPHRITIS Physical Exam Vital Signs: Temp Pulse Resp BP Pulse Ox 99.0 F 84 28 H 125/61 99 12/01/19 12:01 12/01/19 12:01 12/01/19 12:01 12/01/19 12:01 12/01/19 12:01 Intake & Output 11/30/19 12/01/19 12/02/19 06:59 06:59 06:59 Intake Total 2750 2290 1546 Balance 2750 2290 1546 Weight 74.7 kg 76.1 kg 76.1 kg General appearance: PRESENT: cooperative, mild distress, well-developed Respiratory exam: PRESENT: rales - Faint rales bilaterally, symmetrical, unlabor ed. ABSENT: rhonchi, tachypnea, wheezes Cardiovascular exam: PRESENT: RRR, +S1, +S2 GI/Abdominal exam: PRESENT: normal bowel sounds, soft. ABSENT: distended, guarding, tenderness Extremities exam: ABSENT: pedal edema Musculoskeletal exam: PRESENT: ambulatory, normal inspection Neurological exam: PRESENT: alert, awake, oriented to person, oriented to place, oriented to situation Psychiatric exam: PRESENT: flat affect. ABSENT: agitated, anxious Skin exam: PRESENT: dry, normal color, warm. Results Laboratory Results: 11/30/19 04:54 11/30/19 04:54 11/29/19 16:10 Blood Blood Culture (PCR) - Final Escherichia Coli 11/29/19 14:16 Clean Catch Midstream Urine Culture - Final Escherichia Coli 11/29/19 11/29/19 11/29/19 18:39 18:39 22:56 Creatine Kinase 33 31 Troponin I < 0.012 NT-Pro-B Natriuret Pep 11/29/19 11/30/19 11/30/19 22:56 04:54 04:54 Creatine Kinase 37 Troponin I < 0.012 < 0.012 NT-Pro-B Natriuret Pep 292 H Impressions: Abdomen/Pelvis CT 11/29/19 16:08 IMPRESSION: 1. Heterogeneous enhancement with striated nephrogram the involving the superior and inferior poles of the left kidney, consistent with pyelonephritis. There is mild surrounding inflammatory change. No perinephric abscess or fluid. No ureteral obstruction. 2. Persistent but improved to splenomegaly, consistent with known history of B- cell lymphoma. 3. Moderate hepatic steatosis. Assessment and Plan - Diagnosis (1) Pyelonephritis Is this a current diagnosis for this admission?: Yes Plan: Continue current antibiotics, showing clinical improvement. She also had the E. coli show up in the blood. If she is afebrile again overnight we may be able to transition her to oral antibiotics. (2) Sepsis Qualifiers: Sepsis type: Escherichia coli Sepsis acute organ dysfunction status: without acute organ dysfunction Qualified Code(s): A41.51 - Sepsis due to Escherichia coli [E. coli] Is this a current diagnosis for this admission?: Yes Plan: As noted above. Sepsis resolving. She was tested for coronavirus but it was negative. (3) History of B-cell lymphoma Is this a current diagnosis for this admission?: Yes Plan: She will resume her usual follow-up as an outpatient - Time Time Spent with patient: 25-34 minutes
[2019-12-02] MEDS: NORMAL SALINE 1000 ML 1,000 ML IV PRN (05:09)
[2019-12-02] MEDS: LEVOTHYROXINE SODIUM 0.088 MG TABLET PO SCH (05:09)
[2019-12-02] MEDS: MEROPENEM 1 GM in NORMAL SALINE 50 ML IV SCH (05:09)
[2019-12-02] MEDS: HEPARIN SOD (PORCINE) 5,000 UNIT/ML 1 ML VIAL SUBCUT SCH (05:19)
[2019-12-02] MEDS: FAMOTIDINE 20 MG TABLET PO SCH (10:05)
[2019-12-02] MEDS: CARVEDILOL 3.125 MG TABLET PO SCH (10:05)
[2019-12-02 12:20] VITALS: BP 121/72
--- NOTE | 2019-12-02 12:36 | PDOC DISCHARGE SUMMARY ---
Impression - Admit/DC Date/PCP Admission Date/Primary Care Provider: 11/29/19 17:10 NADEEM VÁZQUEZ MD Discharge Date: 12/02/19 - Discharge Diagnosis (1) Pyelonephritis Is this a current diagnosis for this admission?: Yes (2) COVID-19 Is this a current diagnosis for this admission?: Yes (3) HTN (hypertension) Is this a current diagnosis for this admission?: Yes (4) Hyponatremia Is this a current diagnosis for this admission?: Yes (5) Sepsis Is this a current diagnosis for this admission?: Yes (6) Leukopenia Is this a current diagnosis for this admission?: Yes (7) Thrombocytopenia Is this a current diagnosis for this admission?: Yes (8) History of B-cell lymphoma Is this a current diagnosis for this admission?: Yes - Additional Information Resuscitation Status: Full Code Discharge Diet: Cardiac Discharge Activity: Activity As Tolerated Referrals: [facility] [Outside] (PATIENT TO BE FOLLOWED BY HEALTH DEPT. ON SELF QUARANTINE AT HOME. ONCE THE HEALTH DEPT. RELEASES PATIENT THEN PATIENT MAY SCHEDULE A FOLLOW UP APPT. WITH PCP.) NADEEM VÁZQUEZ MD [Primary Care Provider] - Follow up as needed Prescriptions: Cephalexin [Cephalexin 500 MG Tablet] 1 tab PO QID #40 tablet Home Medications: Carvedilol [Coreg 3.125 mg Tablet] 3.125 mg PO Q12 06/22/19 Levothyroxine Sodium 88 mcg PO DAILY 06/22/19 Diphenoxylate HCl/Atrop Sulf [Lomotil 2.5 mg Tablet] 1 tab PO ASDIR PRN 11/29/19 Tramadol HCl [Ultram 50 mg Tablet] 50 mg PO Q6HP PRN 11/29/19 Cephalexin [Cephalexin 500 MG Tablet] 1 tab PO QID #40 tablet 12/02/19 History of Present Illiness History of Present Illness: HAZEL BORGES is a 59 year old female with history of B-cell lymphoma, hypertension, history of CVA, seizure disorder, hypothyroidism, gastroparesis reflux disease, history of ESBL E. coli went to see Dr. Boo in her office with complaints of high-grade fever for more than a week. He also complained about foul-smelling and burning urination for the more than a week associated with left flank pain. Patient was referred to the ER for further evaluation. Patient denies any cough shortness of breath or wheezing. Her main concern is fever associated with burning urination and foul-smelling urination, left flank pain and constipation. She denies any recent history of travel but her nephews came to visit her from [place] 3 days ago. As per the patient no close family members are tested positive for coronavirus. Because of the immunocompromise state and came in with history of high-grade fever plan is to go ahead and do the coronavirus testing and arrange for droplet isolation's. CRP, procalcitonin, d-dimer, ferritin levels are requested. Cultures blood cultures were sent from the ER and the patient was started on IV meropenem in the emergency room. Hospital Course Hospital Course: The patient had benign hospital course. Because of her fever and question of shortness of breath she was ruled out for COVID 19 virus. Her tests were negative. She had sepsis with pyelonephritis and bacteremia from E. coli. Because of her treatment for B-cell lymphoma she became leukopenic and was lymphocytopenia. She is feeling much better on antibiotics. Blood cultures and urine grew E. coli which is sensitive to all antibiotics tested except ampicillin. She will discharge to home. She will follow-up with her primary care provider and I believe Dr. Weaver will be seeing her post discharge as well. Physical Exam Vital Signs: Temp Pulse Resp BP Pulse Ox 98.2 F 77 18 121/72 100 12/02/19 11:01 12/02/19 11:01 12/02/19 11:01 12/02/19 11:01 12/02/19 11:01 Intake & Output 12/01/19 12/02/19 12/03/19 06:59 06:59 06:59 Intake Total 2290 4046 Output Total 0 Balance 2290 4046 Weight 76.1 kg 76.1 kg General appearance: PRESENT: no acute distress, cooperative, well-developed Head exam: PRESENT: atraumatic, normocephalic Eye exam: PRESENT: conjunctiva pink. ABSENT: scleral icterus Ear exam: PRESENT: normal external ear exam. ABSENT: bleeding, drainage Mouth exam: PRESENT: moist, tongue midline Respiratory exam: PRESENT: clear to auscultation marta, symmetrical, unlabored. ABSENT: rales, rhonchi, tachypnea, wheezes Cardiovascular exam: PRESENT: RRR, +S1, +S2. ABSENT: bradycardia, diastolic murmur, systolic murmur, tachycardia GI/Abdominal exam: PRESENT: normal bowel sounds, soft. ABSENT: distended, guarding, tenderness Rectal exam: PRESENT: deferred Gentrourinary exam: ABSENT: indwelling catheter Extremities exam: ABSENT: pedal edema Musculoskeletal exam: PRESENT: ambulatory, full ROM, normal inspection. ABSENT: deformity Neurological exam: PRESENT: alert, awake, oriented to person, oriented to place, oriented to time, oriented to situation, CN II-XII grossly intact. ABSENT: altered Psychiatric exam: PRESENT: appropriate affect, normal mood. ABSENT: agitated, anxious Focused psych exam: ABSENT: delusional, paranoid, restlessness Skin exam: PRESENT: dry, normal color, warm. ABSENT: rash Results Laboratory Results: WBC 3.5 10^3/uL (4.0-10.5) L 11/30/19 04:54 RBC 3.20 10^6/uL (3.72-5.28) L 11/30/19 04:54 Hgb 10.1 g/dL (12.0-15.5) L 11/30/19 04:54 Hct 28.2 % (36.0-47.0) L 11/30/19 04:54 MCV 88 fl (80-97) 11/30/19 04:54 MCH 31.5 pg (27.0-33.4) 11/30/19 04:54 MCHC 35.7 g/dL (32.0-36.0) 11/30/19 04:54 RDW 14.7 % (11.5-14.0) H 11/30/19 04:54 Plt Count 89 10^3/uL (150-450) L 11/30/19 04:54 Lymph % (Auto) Not Reportable 11/30/19 04:54 Lares % (Auto) Not Reportable 11/30/19 04:54 Eos % (Auto) Not Reportable 11/30/19 04:54 Baso % (Auto) Not Reportable 11/30/19 04:54 Absolute Neuts (auto) Not Reportable 11/30/19 04:54 Absolute Lymphs (auto) Not Reportable 11/30/19 04:54 Absolute Monos (auto) Not Reportable 11/30/19 04:54 Absolute Eos (auto) Not Reportable 11/30/19 04:54 Absolute Basos (auto) Not Reportable 11/30/19 04:54 Total Counted 100 11/30/19 04:54 Seg Neutrophils % Not Reportable 11/30/19 04:54 Seg Neuts % (Manual) 87 % (42-78) H 11/30/19 04:54 Lymphocytes % (Manual) 1 % (13-45) L 11/30/19 04:54 Monocytes % (Manual) 12 % (3-13) 11/30/19 04:54 Eosinophils % (Manual) 0 % (0-6) 11/30/19 04:54 Basophils % (Manual) 0 % (0-2) 11/30/19 04:54 Abs Neuts (Manual) 3.0 10^3/uL (1.7-8.2) 11/30/19 04:54 Abs Lymphs (Manual) 0.0 10^3/uL (0.5-4.7) L 11/30/19 04:54 Abs Monocytes (Manual) 0.4 10^3/uL (0.1-1.4) 11/30/19 04:54 Absolute Eos (Manual) 0.0 10^3/uL (0.0-0.6) 11/30/19 04:54 Abs Basophils (Manual) 0.0 10^3/uL (0.0-0.2) 11/30/19 04:54 Toxic Granulation SLIGHT 11/30/19 04:54 Platelet Comment DECREASED 11/30/19 04:54 Anisocytosis SLIGHT 11/30/19 04:54 Ovalocytes SLIGHT 11/29/19 14:16 D-Dimer 1.62 ug/mL (0.00-0.50) H 11/29/19 14:16 Sodium 137.0 mmol/L (137-145) 11/30/19 04:54 Potassium 4.0 mmol/L (3.6-5.0) 11/30/19 04:54 Chloride 105 mmol/L (98-107) 11/30/19 04:54 Carbon Dioxide 27 mmol/L (22-30) 11/30/19 04:54 Anion Gap 5 (5-19) 11/30/19 04:54 BUN 9 mg/dL (7-20) 11/30/19 04:54 Creatinine 0.53 mg/dL (0.52-1.25) 11/30/19 04:54 Est GFR ( Amer) > 60 (>60) 11/30/19 04:54 Est GFR (MDRD) Non-Af > 60 (>60) 11/30/19 04:54 Glucose 123 mg/dL (75-110) H 11/30/19 04:54 Hemoglobin A1c % 5.2 % (4.7-6.0) 11/30/19 04:54 Calcium 8.4 mg/dL (8.4-10.2) 11/30/19 04:54 Magnesium 2.0 mg/dL (1.6-2.3) 11/30/19 04:54 Ferritin 238.00 ng/mL (11.1-264.0) 11/29/19 14:16 Total Bilirubin 0.6 mg/dL (0.2-1.3) 11/30/19 04:54 Direct Bilirubin 0.0 mg/dL (0.0-0.4) 11/30/19 04:54 Neonat Total Bilirubin Not Reportable 11/30/19 04:54 Neonat Direct Bilirubin Not Reportable 11/30/19 04:54 Neonat Indirect Bili Not Reportable 11/30/19 04:54 AST 21 U/L (14-36) 11/30/19 04:54 ALT 14 U/L (<35) 11/30/19 04:54 Alkaline Phosphatase 78 U/L (38-126) 11/30/19 04:54 Creatine Kinase 37 U/L (30-135) 11/30/19 04:54 Troponin I < 0.012 ng/mL 11/30/19 04:54 C-Reactive Protein 389.8 mg/L (<10.0) H 11/29/19 14:16 NT-Pro-B Natriuret Pep 292 pg/mL (<125) H 11/30/19 04:54 Total Protein 5.7 g/dL (6.3-8.2) L 11/30/19 04:54 Albumin 3.2 g/dL (3.5-5.0) L 11/30/19 04:54 Triglycerides 136 mg/dL (<150) 11/30/19 04:54 Cholesterol 138.83 mg/dL (0-200) 11/30/19 04:54 LDL Cholesterol Direct 53 mg/dL (<100) 11/30/19 04:54 VLDL Cholesterol 27.0 mg/dL (10-31) 11/30/19 04:54 HDL Cholesterol 45 mg/dL (>40) 11/30/19 04:54 Procalcitonin 1.21 ng/mL (0.00-0.08) H 11/29/19 18:39 TSH 2.37 uIU/mL (0.47-4.68) 11/30/19 04:54 Urine Color YELLOW 11/29/19 14:16 Urine Appearance SLIGHTLY-CLOUDY 11/29/19 14:16 Urine pH 6.0 (5.0-9.0) 11/29/19 14:16 Ur Specific [place] 1.010 11/29/19 14:16 Urine Protein 30 mg/dL (NEGATIVE) H 11/29/19 14:16 Urine Glucose (UA) NEGATIVE mg/dL (NEGATIVE) 11/29/19 14:16 Urine Ketones NEGATIVE mg/dL (NEGATIVE) 11/29/19 14:16 Urine Blood NEGATIVE (NEGATIVE) 11/29/19 14:16 Urine Nitrite POSITIVE (NEGATIVE) H 11/29/19 14:16 Urine Bilirubin NEGATIVE (NEGATIVE) 11/29/19 14:16 Urine Urobilinogen NEGATIVE mg/dL (<2.0) 11/29/19 14:16 Ur Leukocyte Esterase SMALL (NEGATIVE) H 11/29/19 14:16 Urine WBC (Auto) 45 /HPF 11/29/19 14:16 Urine RBC (Auto) 1 /HPF 11/29/19 14:16 Urine Bacteria (Auto) 1+ /HPF 11/29/19 14:16 Urine WBC Clumps RARE /HPF 11/29/19 14:16 Squamous Epi Cells Auto 1 /HPF 11/29/19 14:16 Amorphous Sediment Auto TRACE /HPF 11/29/19 14:16 Urine Mucus (Auto) RARE /LPF 11/29/19 14:16 Urine Ascorbic Acid NEGATIVE (NEGATIVE) 11/29/19 14:16 Urine Opiates Screen NEGATIVE 11/29/19 14:01 Urine Methadone Screen NEGATIVE 11/29/19 14:01 Ur Barbiturates Screen NEGATIVE 11/29/19 14:01 Ur Phencyclidine Scrn NEGATIVE 11/29/19 14:01 Ur Amphetamines Screen NEGATIVE 11/29/19 14:01 U Benzodiazepines Scrn NEGATIVE 11/29/19 14:01 Urine Cocaine Screen NEGATIVE 11/29/19 14:01 U Marijuana (THC) Screen NEGATIVE 11/29/19 14:01 COVID-19 Source NASOPHARYNGEAL 11/29/19 18:49 COVID-19 (MARGOT) NOT DETECTED 11/29/19 18:49 Influenza A (Rapid) NEGATIVE (NEGATIVE) 11/29/19 19:01 Influenza B (Rapid) NEGATIVE (NEGATIVE) 11/29/19 19:01 11/29/19 11/29/19 11/30/19 18:39 22:56 04:54 Troponin I < 0.012 < 0.012 < 0.012 NT-Pro-B Natriuret Pep 292 H Impressions: Abdomen/Pelvis CT 11/29/19 16:08 IMPRESSION: 1. Heterogeneous enhancement with striated nephrogram the involving the superior and inferior poles of the left kidney, consistent with pyelonephritis. There is mild surrounding inflammatory change. No perinephric abscess or fluid. No ureteral obstruction. 2. Persistent but improved to splenomegaly, consistent with known history of B- cell lymphoma. 3. Moderate hepatic steatosis. Plan Health Concerns: Underlying B-cell lymphoma in light of E. coli pyelonephritis with bacteremia Plan of Treatment: Complete antibiotics as ordered. Consider probiotic while on antibiotics. Follow-up with primary care as well as oncology Goals: Complete resolution of infection and resuming treatment for her lymphoma Time Spent: Greater than 30 Minutes Stroke Is this a Stroke Patient?: No Acute Heart Failure - Is this a Heart Failure Patient?: No
== END 2019-12-02 14:16 | disposition home or self-care (01) | DRG 872 ==
LOC: ER 13:41 → EH 17:10 → 5 19:58 → 4N 12-01 17:07
PROVIDERS: ADMIT Internal Medicine; ATTEND Hospitalist
DX: A41.9 Sepsis, unspecified organism (principal); N10 Acute pyelonephritis; C85.10 Unspecified B-cell lymphoma, unspecified site; E87.1 Hypo-osmolality and hyponatremia; I10 Essential (primary) hypertension; B96.20 Unspecified Escherichia coli [E. coli] as the cause of diseases classified elsewhere; D69.59 Other secondary thrombocytopenia; R79.1 Abnormal coagulation profile; G40.909 Epilepsy, unspecified, not intractable, without status epilepticus; K21.9 Gastro-esophageal reflux disease without esophagitis; E03.9 Hypothyroidism, unspecified; Z03.818 Encounter for observation for suspected exposure to other biological agents ruled out; Z92.21 Personal history of antineoplastic chemotherapy; Z92.25 Personal history of immunosuppression therapy; Z86.73 Personal history of transient ischemic attack (TIA), and cerebral infarction without residual deficits
CPT/HCPCS: 36415; 74177; 80053; 80061; 80307; 81001; 82550; 82728; 83036; 83735; 83880; 84145; 84443; 84484; 85025; 85379; 86140; 87040; 87077; 87086; 87088; 87150; 87186; 87635; 87804; J2185; J7030

== ENCOUNTER → 2019-12-31 | Outpatient (CLI) | payer BC ==
--- NOTE | 2019-12-31 13:42 | RADIOLOGY REPORT (SQ) ---
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 No oral contrast. Images reviewed with lung, soft tissue, and bone windows. Reconstructed coronal and sagittal MPR images reviewed. Delayed images for evaluation of the urinary system also acquired. All images stored on PACS. All CT scanners at this facility use dose modulation, iterative reconstruction, and/or weight based d osing when appropriate to reduce radiation dose to as low as reasonably achievable (ALARA). [facility]: Dose Right [facility]: CareDose [facility]: Dose Right [facility]: Teradose 4D [facility]: [employer] CONTRAST TYPE AND DOSE: contrast/concentration: Isovue 350.00 mg/ml; Total Contrast Delivered: 98.0 ml; Total Saline Delivered: 72.0 ml RENAL FUNCTION: Creatinine 0.5 RADIATION DOSE: CT Rad equipment meets quality standard of care and radiation dose reduction techniq ues were employed. CTDIvol: 9.7 - 9.7 mGy. DLP: 1000 mGy-cm.. LIMITATIONS: None. FINDINGS: LOWER CHEST: No significant findings. No nodules or infiltrates. LIVER: Normal size. No masses. No dilated ducts. SPLEEN: Splenomegaly unchanged. PANCREAS: No masses. No significant calcifications. No adjacent inflammation or peripancreatic fluid collections. Pancreatic duct not dilated. GALLBLADDER: Surgically absent. ADRENAL GLANDS: No significant masses or asymmetry. RIGHT KIDNEY AND URETER: No solid masses. No significant calcifications. No hydronephrosis or hyd roureter. LEFT KIDNEY AND URETER: No solid masses. There is a small cyst demonstrated on series 2, image 29. The kidney demonstrates heterogeneous attenuation on delayed images. No significant calcifications. No hydronephrosis or hydroureter. AORTA AND VESSELS: No aneurysm. No dissection. Renal arteries, SMA, celiac without stenosis. RETROPERITONEUM: No retroperitoneal adenopathy, hemorrhage or masses. BOWEL AND PERITONEAL CAVITY: No masses or inflammatory changes. No free fluid or peritoneal masses. APPENDIX: Normal. PELVIS: No mass. No free fluid. Normal bladder. ABDOMINAL WALL: No masses. No hernias. BONES: No significant or acute findings. OTHER: No other significant finding. IMPRESSION: Heterogeneous attenuation of the left kidney on delayed imaging consistent with pyelonep hritis. Similar findings were present on 11/29/2019. Left perinephric stranding has resolved. Stable splenomegaly. TECHNICAL DOCUMENTATION: JOB ID: [id number] Quality ID # [id number]: Final reports with documentation of one or more dose reduction techniques (e.g., Au tomated exposure control, adjustment of the mA and/or kV according to patient size, use of iterative reconstruction technique) 2010 [employer]- All Rights Reserved Reading location - IP/workstation name: [email or web address]
== END ==
LOC: RAD 12:13
PROVIDERS: ATTEND Family Medicine Geriatric Medicine
DX: N12 Tubulo-interstitial nephritis, not specified as acute or chronic (principal)
CPT/HCPCS: 74177; 82565

== ENCOUNTER → 2019-12-31 | Outpatient (CLI) | payer BC ==
[2019-12-31 13:08] LABS: HEMATOCRIT 27.9 % (36.0-47.0); HEMOGLOBIN 9.8 g/dL (12.0-15.5); MEAN CORPUSCULAR HEMOGLOBIN 30.9 pg (27.0-33.4); MEAN CORPUSCULAR HGB CONC 35.3 g/dL (32.0-36.0); MEAN CORPUSCULAR VOLUME 87 fl (80-97); PLATELET COUNT 179 10^3/uL (150-450); RED BLOOD COUNT 3.19 10^6/uL (3.72-5.28); RED CELL DISTRIBUTION WIDTH 17.1 % (11.5-14.0)
[2019-12-31 13:32] LABS: ANION GAP 7 (5-19); BLOOD UREA NITROGEN 15 mg/dL (7-20); CALCIUM 9.3 mg/dL (8.4-10.2); CARBON DIOXIDE 26 mmol/L (22-30); CHLORIDE 104 mmol/L (98-107); GLUCOSE 98 mg/dL (75-110); POTASSIUM 4.4 mmol/L (3.6-5.0)
[2019-12-31 14:09] LABS: ABSOLUTE LYMPHOCYTES# (MANUAL) 0.5 10^3/uL (0.5-4.7); ABSOLUTE MONOCYTES # (MANUAL) 0.1 10^3/uL (0.1-1.4); BASOPHILS % (MANUAL) 0 % (0-2); EOSINOPHILS % (MANUAL) 0 % (0-6)
[2019-12-31 14:10] LABS: BAND NEUTROPHILS % (MANUAL) 2 % (3-5); LYMPHOCYTES % (MANUAL) 34 % (13-45); MONOCYTES % (MANUAL) 6 % (3-13); SEGMENTED NEUTROPHILS % (MAN) 58 % (42-78); TOTAL CELLS COUNTED 50
[2019-12-31 14:11] LABS: ANISOCYTOSIS 1+; PLATELET COMMENT ADEQUATE
[2019-12-31 14:12] LABS: HYPOCHROMASIA SLIGHT; OVALOCYTES SLIGHT; POIKILOCYTOSIS SLIGHT
[2019-12-31 14:20] LABS: WHITE BLOOD COUNT 1.4 10^3/uL (4.0-10.5)
[2020-01-03 13:04] LABS: PATH REVIEW PATHOLOGIST REVIEWED
== END ==
LOC: OD 11:51
PROVIDERS: ATTEND Family Medicine Geriatric Medicine
DX: N12 Tubulo-interstitial nephritis, not specified as acute or chronic (principal); E03.9 Hypothyroidism, unspecified; Z79.899 Other long term (current) drug therapy
CPT/HCPCS: 36415; 80048; 84443; 85025

== ENCOUNTER → 2020-01-18 | Outpatient (CLI) | payer BC ==
--- NOTE | 2020-01-18 16:40 | RADIOLOGY REPORT (SQ) ---
EXAM DESCRIPTION: PET CT SKULL/THIGH IMAGES COMPLETED DATE/TIME: 01/18/2020 11:23 am REASON FOR STUDY: SMALL CELL B-CELL LYMPHOMA (C83.07) C83.07 SMALL CELL B-CELL LYMPHOMA, SPLEEN COMPARISON: 12/31/2019 RADIONUCLIDE AND DOSE: 11.43 mCi F18 FDG The route of agent administration: Intravenous FASTING BLOOD SUGAR: 89 mg/dl CONTRAST TYPE AND DOSE: No CT contrast given. TECHNIQUE: Blood glucose level was verified. Above dose of FDG was injected intravenously. 2-D seg mented attenuation correction images were obtained from the base of the skull to the midthighs. Nonc ontrast CT images were obtained for attenuation correction and fusion with emission images. CT image s were performed without oral or intravenous contrast and are not sensitive for parenchymal lesions. A series of overlapping emission PET images were obtained. Images reviewed and manipulated at [facility] work station by the radiologist. Images stored on PACS. LIMITATIONS: None. FINDINGS: HEAD AND NECK: No areas of abnormal metabolic activity in the soft tissues of the head and neck. CHEST: There are new multifocal scattered areas peripheral predominant consolidation and ground-glass attenuation throughout both lungs with a mild ill-defined FDG uptake (max SUV range from 4.5 -5.1). No other focal areas of abnormal uptake within the thorax. Right-sided chest port with catheter tip at cavoatrial junction. Cardiomegaly. Scattered coronary atherosclerosis. ABDOMEN AND PELVIS: Stable splenomegaly measuring 14.8 cm with diffuse mild FDG activity (max SUV 2.8 ). No other areas of abnormal metabolic activity in the abdomen or pelvis. Expected physiologic act ivity is present in the genitourinary system and bowel. PROXIMAL LOWER EXTREMITIES: No areas of abnormal metabolic activity in the soft tissues of the lower extremities. BONES: No abnormal metabolic activity in the visualized skeleton. ADDITIONAL CT FINDINGS: As above. OTHER: Background hepatic activity max SUV 2.9. IMPRESSION: 1. New multifocal peripheral predominant areas of consolidation and ground-glass attenu ation throughout both lungs with diffuse FDG uptake (max SUV 5.1). Findings favor infectious/ inflam matory process of which viral pneumonia is a consideration. Imaging features can be seen with Covid p neumonia, though are nonspecific and can occur with a variety of infectious and noninfectious process es. 2. Stable enlarged spleen with mild diffuse activity (max SUV 2.8, which is below background hepatic activity of max SUV 2.9). 3. No other areas of focal abnormal uptake throughout remainder of the scan. Findings discussed with Dr. Zaragoza At 1630 hours on 01/18/2020 TECHNICAL DOCUMENTATION: JOB ID: [id number] 2010 [employer]- All Rights Reserved Reading location - IP/workstation name: [email or web address]
== END ==
LOC: RAD 07:38
PROVIDERS: ATTEND Internal Medicine Hematology & Oncology
DX: C83.07 Small cell B-cell lymphoma, spleen (principal)
CPT/HCPCS: 78815; A9552

== ENCOUNTER → 2020-02-21 | Outpatient (CLI) | payer BC ==
--- NOTE | 2020-02-21 17:06 | RADIOLOGY REPORT (SQ) ---
EXAM DESCRIPTION: CHEST PA/LATERAL IMAGES COMPLETED DATE/TIME: 02/21/2020 4:30 pm REASON FOR STUDY: COUGH COMPARISON: 07/27/2018 EXAM PARAMETERS: NUMBER OF VIEWS: two views TECHNIQUE: Digital Frontal and Lateral radiographic views of the chest acquired. RADIATION DOSE: NA LIMITATIONS: none FINDINGS: LUNGS AND PLEURA: Patchy opacification in both lung bases. MEDIASTINUM AND HILAR STRUCTURES: No masses or contour abnormalities. HEART AND VASCULAR STRUCTURES: Heart normal size. No evidence for failure. BONES: No acute findings. HARDWARE: Injection port on the right. OTHER: No other significant finding. IMPRESSION: Airspace disease in both lung bases, pneumonia versus atelectasis. Being multicentric, an atypical infectious/ inflammatory process cannot be excluded. TECHNICAL DOCUMENTATION: JOB ID: [id number] 2010 [employer]- All Rights Reserved Reading location - IP/workstation name: [email or web address]
== END ==
LOC: OD 16:03
PROVIDERS: ATTEND Family Medicine
DX: R05 Cough (principal)
CPT/HCPCS: 71046

== ENCOUNTER → 2020-06-07 | Outpatient (CLI) | payer BC ==
--- NOTE | 2020-06-07 12:16 | RADIOLOGY REPORT (SQ) ---
EXAM DESCRIPTION: CT HEAD WITHOUT IMAGES COMPLETED DATE/TIME: 06/07/2020 10:01 am REASON FOR STUDY: R42 DIZZINESS AND GIDDINESS, R55 SYNCOPE AND COLLAPSE R42 DIZZINESS AND GIDDINESS R55 SYNCOPE AND COLLAPSE COMPARISON: 07/29/2018 TECHNIQUE: Axial images acquired through the brain without intravenous contrast. Images reviewed wi th bone, brain and subdural windows. Additional sagittal and coronal reconstructions were generated. Images stored on PACS. All CT scanners at this facility use dose modulation, iterative reconstruction, and/or weight based d osing when appropriate to reduce radiation dose to as low as reasonably achievable (ALARA). [facility]: Dose Right [facility]: CareDose [facility]: Dose Right [facility]: Teradose 4D [facility]: [employer] RADIATION DOSE: CT Rad equipment meets quality standard of care and radiation dose reduction techniq ues were employed. CTDIvol: 48.6 mGy. DLP: 880 mGy-cm. mGy. LIMITATIONS: None. FINDINGS: VENTRICLES: Normal size and contour. CEREBRUM: No masses. No hemorrhage. No midline shift. No evidence for acute infarction. Few scatte red areas of low density in the white matter most likely chronic small vessel ischemic changes. CEREBELLUM: No masses. No hemorrhage. No alteration of density. No evidence for acute infarction. EXTRAAXIAL SPACES: No fluid collections. No masses. ORBITS AND GLOBE: No intra- or extraconal masses. Normal contour of globe without masses. CALVARIUM: No fracture. PARANASAL SINUSES: No fluid or mucosal thickening. SOFT TISSUES: No mass or hematoma. OTHER: No other significant finding. IMPRESSION: MILD CHRONIC MICROVASCULAR ISCHEMIA. NO ACUTE IMAGING FINDINGS IN THE BRAIN. EVIDENCE OF ACUTE STROKE: NO. COMMENT: Quality ID # 436: Final reports with documentation of one or more dose reduction techniques (e.g., Automated exposure control, adjustment of the mA and/or kV according to patient size, use of iterative reconstruction technique) TECHNICAL DOCUMENTATION: JOB ID: [id number] 2010 [employer]- All Rights Reserved Reading location - IP/workstation name: [email or web address]
--- NOTE | 2020-06-07 14:07 | RADIOLOGY REPORT (SQ) ---
EXAM DESCRIPTION: CAROTID DOPPLER IMAGES COMPLETED DATE/TIME: 06/07/2020 1:45 pm REASON FOR STUDY: SYNCOPE WITH COLLAPSE R42 DIZZINESS AND GIDDINESS R55 SYNCOPE AND COLLAPSE COMPARISON: 07/29/2018 TECHNIQUE: Grayscale ultrasound, Doppler velocity and spectra, and color Doppler images acquired of the extra-cranial carotid and vertebral arteries. Images stored on PACS. LIMITATIONS: None. FINDINGS: RIGHT CAROTID CCA Velocities: Within normal limits. ICA Velocities Peak systolic 96 cm/s. End diastolic 45 cm/s. Proximal ICA/CCA peak systolic ratio 1.2. Minimal intimal thickening. LEFT CAROTID CCA Velocities: Within normal limits. ICA Velocities Peak systolic 90 cm/s. End diastolic 41 cm/s. Proximal ICA/CCA peak systolic ratio 0.92. Minimal intimal thickening. VERTEBRAL ARTERIES: Antegrade flow. Normal waveforms. SUBCLAVIAN ARTERIES: No finding. OTHER: No other significant finding. IMPRESSION: NO HEMODYNAMICALLY SIGNIFICANT STENOSIS. COMMENT: Quality ID #195: Velocity criteria are extrapolated from the diameter data as defined by t he Society of Radiologists in Ultrasound Consensus Conference. Radiology 2003: 229; 340-346. TECHNICAL DOCUMENTATION: JOB ID: [id number] 2010 [employer]- All Rights Reserved Reading location - IP/workstation name: [email or web address]
--- NOTE | 2020-06-07 16:49 | XCELERA REPORT ---
[address] [address] Transthoracic Echocardiogram Report Name: HAZEL BORGES Age: 60 yrs Gender: Female : 1960 Patient Status: Outpatient Patient Location: Study Date: 06/07/2020 10:14 AM History: Syncope Height: 63 in Weight: 164 lb BSA: 1.8 m2 Procedure: A complete two-dimensional transthoracic echocardiogram was performed (2D, M-mode, spectral and color flow Doppler). The study was technically difficult with many images being suboptimal in quality. Reason For Study: SYNCOPE WITH COLLAPSE Previous Evaluation: A previous study was performed on 07/29/2018 LVEF normal. No . History: Syncope. Ordering Physician: NADEEM VÁZQUEZ Performed By: Jimmy Ny Interpretation Summary Left ventricular systolic function is normal. The Ejection Fraction estimate is 60-65% The right ventricle is normal in size and function. There is a trace amount of mitral regurgitation There is no aortic valve stenosis There is a trace amount of tricuspid regurgitation There is no pericardial effusion. MMode/2D Measurements & Calculations RVDd: 2.7 cm LVIDd: 4.6 cm FS: 39.3 % Ao root diam: 3.0 cm IVSd: 0.83 cm LVIDs: 2.8 cm EDV(Teich): 95.2 ml Ao root area: 7.1 cm2 LVPWd: 0.82 cm ESV(Teich): 28.7 ml LA dimension: 3.4 cm EF(Teich): 69.8 % Doppler Measurements & Calculations MV E max perez: MV P1/2t max perez: Ao V2 max: LV V1 max P.2 cm/sec 53.7 cm/sec 119.4 cm/sec 2.4 mmHg MV A max perez: MV P1/2t: 92.3 msec Ao max P.7 mmHg LV V1 max: 67.5 cm/sec MVA(P1/2t): 2.4 cm2 77.5 cm/sec MV E/A: 0.63 MV dec slope: 170.4 cm/sec2 MV dec time: 0.23 sec PA V2 max: PI end-d perez: MV P1/2t-pr_phl: 74.0 cm/sec 106.0 cm/sec 92.3 msec PA max P.2 mmHg Left Ventricle The left ventricle is normal in size. There is normal left ventricular wall thickness. Left ventricular systolic function is normal. The Ejection Fraction estimate is 60-65%. Doppler measurements suggest impaired left ventricular relaxation, which is associated with grade I/IV or mild diastolic dysfunction. Regional wall motion abnormalities cannot be excluded due to limited visualization. Right Ventricle The right ventricle is normal in size and function. Atria The right atrium is normal. The left atrium is mildly dilated. The interatrial septum is intact with no evidence for an atrial septal defect. There is no Doppler evidence for an interatrial shunt. Mitral Valve The mitral valve is grossly normal. There is no mitral valve stenosis. There is a trace amount of mitral regurgitation. Aortic Valve The aortic valve is normal in structure and function. The aortic valve is trileaflet. The aortic valve opens well. There is no aortic valve stenosis. No aortic regurgitation is present. Tricuspid Valve The tricuspid valve is normal in structure and function. There is a trace amount of tricuspid regurgitation. Tricuspid regurgitation jet envelope not well defined to measure RV systolic pressure accurately. Doppler findings do not suggest pulmonary hypertension. Pulmonic Valve The pulmonic valve is normal in structure and function. There is no pulmonic valvular stenosis. There is a trace amount of pulmonic regurgitation. Great Vessels The aortic root is normal size. The inferior vena cava appeared normal and decreased > 50% with respiration (RAP 5-10 mmHg). Effusions There is no pericardial effusion. : NADEEM VÁZQUEZ Anil
== END ==
LOC: SP 09:46
PROVIDERS: ATTEND Family Medicine
DX: R55 Syncope and collapse (principal); R42 Dizziness and giddiness
CPT/HCPCS: 70450; 93306; 93880